=== PATIENT | male | born 1985 | race Caucasian/White ===

== ENCOUNTER 2017-03-12 13:38 | Emergency (ER) | payer SELFPAY ==
[~2017-03-12] VITALS: Ht 175.3 cm; Wt 69.2 kg
[2017-03-12 13:41] VITALS: BP 126/80
[2017-03-12] MEDS ORDERED: HYDROcodone/APAP 5/325 TABLET ONE (14:41)
[2017-03-12] MEDS ORDERED: HYDROcodone/APAP 5/325 TABLET PO ONE (15:00)
== END 2017-03-12 15:12 | disposition home or self-care (01) ==
LOC: ED 15:05
DX: S29.011A Strain of muscle and tendon of front wall of thorax, initial encounter (principal); Z90.49 Acquired absence of other specified parts of digestive tract; V00.131A Fall from skateboard, initial encounter; Y93.89 Activity, other specified; Y99.8 Other external cause status; Y92.89 Other specified places as the place of occurrence of the external cause
CPT/HCPCS: 99284

== ENCOUNTER 2017-06-15 21:09 | Emergency (ER) | payer SELFPAY ==
[~2017-06-15] VITALS: Ht 175.3 cm; Wt 68.8 kg
[2017-06-15] MEDS ORDERED: PROMETHAZINE 25 MG/ML, 1ML IM ONE (22:00)
[2017-06-15] MEDS ORDERED: LORazepam 2 MG/ML, 1ML IVPush ONE (22:00)
[2017-06-15] MEDS ORDERED: SODIUM CHLORIDE FLUSH 10ML SYR IVF ONE (22:00)
[2017-06-15] MEDS ORDERED: SODIUM CHLORIDE 0.9% 1,000ML IVBOLUS ONE (22:00)
[2017-06-15] MEDS ORDERED: ONDANSETRON 2MG/ML, 2ML IVPush ONE (22:00)
[2017-06-15] MEDS ORDERED: FAMOTIDINE 20 MG/2 ML IVP ONE (22:00)
[2017-06-15] MEDS ORDERED: MORPHINE SULFATE 4 MG/ML, 1ML IVPush PRN (22:00)
[2017-06-15 22:27] LABS: ALANINE AMINOTRANSFERASE 81 U/L (12-78); ALBUMIN 4.3 g/dL (3.4-5.0); ANION GAP 10 mmol/L (5-15); CHLORIDE 107 mmol/L (98-107); CREATININE 1.06 mg/dL (0.7-1.3)
[2017-06-15 22:29] LABS: ALKALINE PHOSPHATASE 136 U/L (45-117); BILIRUBIN,TOTAL 0.9 mg/dL (0.2-1.0); TOTAL PROTEIN 8.7 g/dL (6.4-8.2)
[2017-06-15] MEDS ORDERED: LORazepam 2 MG/ML, 1ML ONE (22:30)
[2017-06-15] MEDS ORDERED: PROMETHAZINE 25 MG/ML, 1ML ONE (22:30)
[2017-06-15] MEDS ORDERED: MORPHINE SULFATE 4 MG/ML, 1ML ONE (22:30)
[2017-06-15 22:47] LABS: BASOPHILS # (AUTO) 0.05 x10^3/uL (0-0.1); BASOPHILS % (AUTO) 0 % (0-1); EOSINOPHILS # (AUTO) 0.04 x10^3/uL (0-0.4); EOSINOPHILS % (AUTO) 0 % (1-7); LYMPHOCYTES # (AUTO) 2.61 x10^3/uL (1-3.4); LYMPHOCYTES % (AUTO) 20 % (22-44); MD MORPH REVIEW ONLY; MEAN CORPUSCULAR HEMOGLOBIN 31.9 pg (27.5-34.5); MEAN CORPUSCULAR HGB CONC 34.6 g/dL (33.2-36.2); MEAN CORPUSCULAR VOLUME 92.4 fL (81-97); MEAN PLATELET VOLUME 11.7 fL (7.4-10.4); MONOCYTES # (AUTO) 1.24 x10^3/uL (0.2-0.8); MONOCYTES % (AUTO) 10 % (2-9); NEUTROPHILS # (AUTO) 9.19 x10^3/uL (1.8-6.8); NEUTROPHILS % (AUTO) 70 % (42-75); PLATELET COUNT 229 x10^3/uL (130-400); RED BLOOD COUNT 5.58 x10^6/uL (4.38-5.82); RED CELL DISTRIBUTION WIDTH 13.7 % (9.4-14.8)
[2017-06-15] MEDS ORDERED: FAMOTIDINE 20 MG/2 ML ONE (22:47)
[2017-06-15] MEDS ORDERED: ONDANSETRON 2MG/ML, 2ML ONE (22:47)
[2017-06-15 22:58] LABS: <PLATELET ESTIMATE> ADEQUATE; <RBC MORPHOLOGY> NORMAL
[2017-06-15 22:59] LABS: LARGE PLATELETS 1+
[2017-06-15 23:09] VITALS: BP 132/85
[2017-06-15 23:51] LABS: MICROSCOPIC NOT IND
[2017-06-15] MEDS ORDERED: OMNIPAQUE 350 MG/ML, 100ML BOTTLE ONE (23:51)
[2017-06-15 23:55] LABS: CULTURE INDICATED? NO
== END 2017-06-16 00:59 | disposition home or self-care (01) ==
LOC: ED 06-16 00:20
DX: E86.0 Dehydration (principal); R10.84 Generalized abdominal pain; G43.A1 Cyclical vomiting, in migraine, intractable; Z88.0 Allergy status to penicillin; Z90.49 Acquired absence of other specified parts of digestive tract; Z79.899 Other long term (current) drug therapy; F17.200 Nicotine dependence, unspecified, uncomplicated
CPT/HCPCS: 36415; 74177; 80053; 80307; 81003; 83690; 85025; 93005; 96361; 96372; 96374; 96375; 99285; J2060; J2405; J2550; J7030; Q9967; S0028

== ENCOUNTER 2017-07-31 11:26 | Emergency (ER) | payer MEDICAID, OTHER ==
[~2017-07-31] VITALS: Ht 167.6 cm; Wt 72.0 kg
[2017-07-31 11:40] VITALS: BP 128/89
[2017-07-31] MEDS ORDERED: ACETAMINOPHEN 500 MG TABLET PO ONE (13:30)
[2017-07-31] MEDS ORDERED: IBUPROFEN 200 MG TABLET PO ONE (13:30)
[2017-07-31] MEDS ORDERED: ONDANSETRON ODT 4 MG PO ONE (13:30)
[2017-07-31] MEDS ORDERED: IBUPROFEN 200 MG TABLET ONE (13:45)
[2017-07-31] MEDS ORDERED: ACETAMINOPHEN 500 MG TABLET ONE (13:45)
[2017-07-31] MEDS ORDERED: ONDANSETRON ODT 4 MG ONE (13:45)
[2017-07-31] MEDS ORDERED: KETOROLAC 30 MG/1 ML ONE (13:50)
[2017-07-31] MEDS ORDERED: CEFTRIAXONE 1,000 MG ONE (13:59)
[2017-07-31] MEDS ORDERED: HYDROcodone/APAP 7.5-325MG/15ML UDC ONE (13:59)
[2017-07-31] MEDS ORDERED: KETOROLAC 30 MG/1 ML IM ONE (14:00)
[2017-07-31] MEDS ORDERED: HYDROcodone/APAP 7.5-325MG/15ML UDC PO PRN (14:00)
[2017-07-31] MEDS ORDERED: CEFTRIAXONE 1,000 MG IM ONE (14:00)
== END 2017-07-31 14:31 | disposition home or self-care (01) ==
LOC: ED 14:20
DX: J02.0 Streptococcal pharyngitis (principal)
CPT/HCPCS: 87880; 96372; 99283; J0696

== ENCOUNTER 2017-10-18 13:01 | Inpatient (IN) | payer MEDICAID, OTHER ==
[~2017-10-18] VITALS: Ht 167.6 cm; Wt 63.7 kg
[2017-10-18] MEDS ORDERED: MORPHINE SULFATE 4 MG/ML, 1ML ONE ×3 (14:22→16:25)
[2017-10-18] MEDS ORDERED: ONDANSETRON 2MG/ML, 2ML ONE ×2 (14:22→16:25)
[2017-10-18] MEDS ORDERED: FAMOTIDINE 20 MG/2 ML ONE (14:23)
[2017-10-18] MEDS: MORPHINE SULFATE 4 MG/ML, 1ML IVPush PRN ×4 (14:25→21:08)
[2017-10-18] MEDS ORDERED: ONDANSETRON 2MG/ML, 2ML IVPush ONE ×2 (14:30→16:30)
[2017-10-18] MEDS ORDERED: FAMOTIDINE 20 MG/2 ML IVP ONE (14:30)
[2017-10-18] MEDS ORDERED: SODIUM CHLORIDE 0.9% 1,000ML IVBOLUS ONE (14:30)
[2017-10-18 14:33] LABS: BASOPHILS # (AUTO) 0.02 x10^3/uL (0-0.1); BASOPHILS % (AUTO) 0 % (0-1); EOSINOPHILS # (AUTO) 0.08 x10^3/uL (0-0.4); EOSINOPHILS % (AUTO) 1 % (1-7); LYMPHOCYTES # (AUTO) 2.18 x10^3/uL (1-3.4); LYMPHOCYTES % (AUTO) 28 % (22-44); MD NO; MEAN CORPUSCULAR HEMOGLOBIN 31.5 pg (27.5-34.5); MEAN CORPUSCULAR HGB CONC 35.5 g/dL (33.2-36.2); MEAN CORPUSCULAR VOLUME 88.6 fL (81-97); MEAN PLATELET VOLUME 8.4 fL (7.4-10.4); MONOCYTES # (AUTO) 1.06 x10^3/uL (0.2-0.8); MONOCYTES % (AUTO) 13 % (2-9); NEUTROPHILS % (AUTO) 58 % (42-75); PLATELET COUNT 267 x10^3/uL (130-400); RED BLOOD COUNT 4.98 x10^6/uL (4.38-5.82); RED CELL DISTRIBUTION WIDTH 12.9 % (9.4-14.8)
[2017-10-18 14:38] LABS: ANION GAP 9 mmol/L (5-15); CALCIUM 9.2 mg/dL (8.5-10.1); CHLORIDE 105 mmol/L (98-107)
[2017-10-18 14:42] LABS: ALANINE AMINOTRANSFERASE 43 U/L (12-78); ALKALINE PHOSPHATASE 101 U/L (45-117); BILIRUBIN,TOTAL 0.6 mg/dL (0.2-1.0); CREATININE 1.36 mg/dL (0.7-1.3); TOTAL PROTEIN 7.7 g/dL (6.4-8.2)
[2017-10-18] MEDS ORDERED: OMNIPAQUE 350 MG/ML, 100ML BOTTLE ONE (15:13)
[2017-10-18] MEDS ORDERED: MORPHINE SULFATE 4 MG/ML, 1ML IVPush ONE (16:30)
[2017-10-18] MEDS ORDERED: BISACODYL 10 MG SUPP PR PRN (17:30)
[2017-10-18] MEDS ORDERED: ENALAPRILAT 1.25 MG/ML, 2ML IVPush PRN (17:30)
[2017-10-18 18:00] VITALS: BP 117/80
[2017-10-18] MEDS: LACTATED RINGERS 1,000 ML IV SCH (18:04)
[2017-10-18] MEDS: ONDANSETRON 2MG/ML, 2ML IVPush PRN (18:04)
[2017-10-18] MEDS ORDERED: HYDR50TA13 PO (18:26)
[2017-10-18] MEDS ORDERED: FLUO20CA19 PO (18:26)
[2017-10-18] MEDS ORDERED: LORA2TAB PO (18:26)
[2017-10-18] MEDS ORDERED: BUSP10TA PO (18:26)
[2017-10-18] MEDS ORDERED: LAMO200T49 PO (18:26)
[2017-10-18 18:36] VITALS: BP 115/68
[2017-10-18] MEDS: FAMOTIDINE 20 MG/2 ML IVPush SCH (21:07)
[2017-10-18] MEDS: BUSPIRONE 10 MG TABLET PO SCH (21:08)
[2017-10-18] MEDS: MIRTAZAPINE 15 MG TAB.RAPDIS PO SCH (21:08)
[2017-10-18] MEDS: ONDANSETRON ODT 4 MG PO PRN (22:31)
[2017-10-18] MEDS: DOCUSATE 100 MG CAPSULE PO PRN (22:31)
[2017-10-18] MEDS: HEPARIN 5,000 UNITS/ML, 1ML SQ SCH (22:32)
[2017-10-18] MEDS: ACETAMINOPHEN 325 MG TABLET PO PRN (23:18)
[2017-10-19 00:56] VITALS: BP 111/69
[2017-10-19] MEDS: LACTATED RINGERS 1,000 ML IV SCH ×3 (02:09→16:52)
[2017-10-19] MEDS: MORPHINE SULFATE 4 MG/ML, 1ML IVPush PRN ×4 (05:11→20:48)
[2017-10-19] MEDS: ONDANSETRON ODT 4 MG PO PRN ×3 (05:11→16:45)
[2017-10-19 05:43] LABS: MEAN CORPUSCULAR HEMOGLOBIN 30.5 pg (27.5-34.5); MEAN CORPUSCULAR HGB CONC 34.4 g/dL (33.2-36.2); MEAN CORPUSCULAR VOLUME 88.6 fL (81-97); MEAN PLATELET VOLUME 8.6 fL (7.4-10.4); PLATELET COUNT 202 x10^3/uL (130-400); RED BLOOD COUNT 4.43 x10^6/uL (4.38-5.82); RED CELL DISTRIBUTION WIDTH 12.8 % (9.4-14.8)
[2017-10-19 05:45] LABS: ANION GAP 6 mmol/L (5-15); CALCIUM 7.7 mg/dL (8.5-10.1); CHLORIDE 105 mmol/L (98-107); CREATININE 1.04 mg/dL (0.7-1.3)
[2017-10-19 05:46] LABS: ALANINE AMINOTRANSFERASE 81 U/L (12-78)
[2017-10-19 05:48] LABS: ALKALINE PHOSPHATASE 103 U/L (45-117); BILIRUBIN,TOTAL 0.5 mg/dL (0.2-1.0); TOTAL PROTEIN 6.1 g/dL (6.4-8.2)
[2017-10-19] MEDS: HEPARIN 5,000 UNITS/ML, 1ML SQ SCH ×3 (06:16→22:30)
[2017-10-19 06:21] LABS: MD YES
[2017-10-19 06:24] LABS: BAND#(MANUAL) 0.04 x10^3/uL; BANDS%(MANUAL) 1 % (0-7); EOS#(MANUAL) 0.04 x10^3/uL (0.0-0.4); EOS% (MANUAL) 1 % (1-7); REACTIVE LYMPHS # (MANUAL) 0.04 x10^3/uL (0-0); REACTIVE LYMPHS % (MANUAL) 1 % (0-0)
[2017-10-19 06:25] LABS: LYMPH#(MANUAL) 2.23 x10^3/uL (1-3.4); LYMPHS% (MANUAL) 62 % (22-44); MONOS% (MANUAL) 11 % (2-9); SEG#(MANUAL) 0.86 x10^3/uL (1.8-6.8); SEGS% (MANUAL) 24 % (42-75)
[2017-10-19 06:27] LABS: MICROSCOPIC NOT IND
[2017-10-19 06:29] LABS: <RBC MORPHOLOGY> NORMAL
[2017-10-19 06:30] LABS: <PLATELET ESTIMATE> ADEQUATE; <PLT MORPHOLOGY> NORMAL PLT MORPH
[2017-10-19 06:31] LABS: CULTURE INDICATED? NO
[2017-10-19 08:06] VITALS: BP 98/66
[2017-10-19] MEDS: ONDANSETRON 2MG/ML, 2ML IVPush PRN ×2 (08:48→20:25)
[2017-10-19] MEDS: BUSPIRONE 10 MG TABLET PO SCH ×3 (08:51→21:29)
[2017-10-19] MEDS: DOCUSATE 100 MG CAPSULE PO PRN (08:51)
[2017-10-19] MEDS: LAMOTRIGINE 200 MG TABLET PO SCH (08:52)
[2017-10-19] MEDS: FLUOXETINE HCL 20 MG CAPSULE PO SCH (08:52)
[2017-10-19] MEDS: ACETAMINOPHEN 325 MG TABLET PO PRN (10:44)
[2017-10-19] MEDS: POLYETHYLENE GLYCOL 17 GM PACKET PO PRN ×2 (10:44→21:52)
[2017-10-19 13:06] VITALS: BP 106/72
[2017-10-19] MEDS: hydrOXyzine 50MG TABLET PO PRN (13:52)
[2017-10-19 18:38] VITALS: BP 122/82
[2017-10-19] MEDS: MIRTAZAPINE 15 MG TAB.RAPDIS PO SCH (21:29)
[2017-10-19] MEDS: FAMOTIDINE 20 MG/2 ML IVPush SCH (21:29)
[2017-10-20] MEDS: LACTATED RINGERS 1,000 ML IV SCH ×3 (00:20→17:36)
[2017-10-20 01:16] VITALS: BP 116/80
[2017-10-20] MEDS: MORPHINE SULFATE 4 MG/ML, 1ML IVPush PRN ×5 (03:50→21:12)
[2017-10-20 05:51] LABS: BASOPHILS # (AUTO) 0.01 x10^3/uL (0-0.1); BASOPHILS % (AUTO) 0 % (0-1); EOSINOPHILS # (AUTO) 0.02 x10^3/uL (0-0.4); EOSINOPHILS % (AUTO) 0 % (1-7); LYMPHOCYTES # (AUTO) 1.13 x10^3/uL (1-3.4); LYMPHOCYTES % (AUTO) 24 % (22-44); MD NO; MEAN CORPUSCULAR HEMOGLOBIN 30.5 pg (27.5-34.5); MEAN CORPUSCULAR HGB CONC 34.8 g/dL (33.2-36.2); MEAN CORPUSCULAR VOLUME 87.7 fL (81-97); MEAN PLATELET VOLUME 8.4 fL (7.4-10.4); MONOCYTES # (AUTO) 0.68 x10^3/uL (0.2-0.8); MONOCYTES % (AUTO) 14 % (2-9); NEUTROPHILS # (AUTO) 2.85 x10^3/uL (1.8-6.8); NEUTROPHILS % (AUTO) 61 % (42-75); PLATELET COUNT 220 x10^3/uL (130-400); RED BLOOD COUNT 4.54 x10^6/uL (4.38-5.82); RED CELL DISTRIBUTION WIDTH 12.4 % (9.4-14.8)
[2017-10-20 05:52] LABS: ALANINE AMINOTRANSFERASE 62 U/L (12-78); ALBUMIN 3.2 g/dL (3.4-5.0); ANION GAP 10 mmol/L (5-15); CALCIUM 7.9 mg/dL (8.5-10.1); CHLORIDE 103 mmol/L (98-107)
[2017-10-20 05:54] LABS: ALKALINE PHOSPHATASE 116 U/L (45-117); BILIRUBIN,TOTAL 0.8 mg/dL (0.2-1.0); CREATININE 0.85 mg/dL (0.7-1.3); TOTAL PROTEIN 6.7 g/dL (6.4-8.2)
[2017-10-20] MEDS: HEPARIN 5,000 UNITS/ML, 1ML SQ SCH ×3 (06:27→21:11)
[2017-10-20 07:21] VITALS: BP 111/73
[2017-10-20] MEDS: ONDANSETRON 2MG/ML, 2ML IVPush PRN ×3 (09:26→21:12)
[2017-10-20] MEDS: FLUOXETINE HCL 20 MG CAPSULE PO SCH (09:27)
[2017-10-20] MEDS: LAMOTRIGINE 200 MG TABLET PO SCH (09:27)
[2017-10-20] MEDS: BUSPIRONE 10 MG TABLET PO SCH ×3 (09:27→21:12)
[2017-10-20 12:48] VITALS: BP 112/78
[2017-10-20] MEDS: hydrOXyzine 50MG TABLET PO PRN (14:32)
[2017-10-20] MEDS ORDERED: MAGNESIUM CITRATE 300ML ORAL SOL PO PRN (17:00)
[2017-10-20] MEDS ORDERED: MAGNESIUM CITRATE 300ML ORAL SOL PO ONE (18:00)
[2017-10-20 18:05] LABS: MICROSCOPIC NOT IND
[2017-10-20 20:22] VITALS: BP 119/76
[2017-10-20] MEDS: FAMOTIDINE 20 MG/2 ML IVPush SCH (21:12)
[2017-10-20] MEDS: MIRTAZAPINE 15 MG TAB.RAPDIS PO SCH (21:12)
[2017-10-21 03:00] VITALS: BP 105/67
[2017-10-21] MEDS: MORPHINE SULFATE 4 MG/ML, 1ML IVPush PRN ×6 (03:20→22:07)
[2017-10-21] MEDS: ONDANSETRON 2MG/ML, 2ML IVPush PRN ×3 (03:20→15:49)
[2017-10-21 05:37] LABS: ALANINE AMINOTRANSFERASE 172 U/L (12-78); ALBUMIN 3.2 g/dL (3.4-5.0); ANION GAP 8 mmol/L (5-15); CALCIUM 8.1 mg/dL (8.5-10.1); CHLORIDE 102 mmol/L (98-107)
[2017-10-21 05:39] LABS: ALKALINE PHOSPHATASE 217 U/L (45-117); BILIRUBIN,TOTAL 0.7 mg/dL (0.2-1.0); TOTAL PROTEIN 6.8 g/dL (6.4-8.2)
[2017-10-21 05:57] LABS: BASOPHILS # (AUTO) 0.03 x10^3/uL (0-0.1); BASOPHILS % (AUTO) 1 % (0-1); EOSINOPHILS # (AUTO) 0.03 x10^3/uL (0-0.4); EOSINOPHILS % (AUTO) 1 % (1-7); LYMPHOCYTES # (AUTO) 1.29 x10^3/uL (1-3.4); LYMPHOCYTES % (AUTO) 35 % (22-44); MD NO; MEAN CORPUSCULAR HEMOGLOBIN 30.5 pg (27.5-34.5); MEAN CORPUSCULAR HGB CONC 34.8 g/dL (33.2-36.2); MEAN CORPUSCULAR VOLUME 87.7 fL (81-97); MEAN PLATELET VOLUME 8.4 fL (7.4-10.4); MONOCYTES # (AUTO) 0.72 x10^3/uL (0.2-0.8); MONOCYTES % (AUTO) 20 % (2-9); NEUTROPHILS # (AUTO) 1.57 x10^3/uL (1.8-6.8); NEUTROPHILS % (AUTO) 43 % (42-75); PLATELET COUNT 209 x10^3/uL (130-400); RED BLOOD COUNT 4.46 x10^6/uL (4.38-5.82); RED CELL DISTRIBUTION WIDTH 12.9 % (9.4-14.8)
[2017-10-21] MEDS: HEPARIN 5,000 UNITS/ML, 1ML SQ SCH (06:27)
[2017-10-21] MEDS: LACTATED RINGERS 1,000 ML IV SCH (06:28)
[2017-10-21 07:19] VITALS: BP 120/80
[2017-10-21 07:57] LABS: INTERNATIONAL NORMALIZED RATIO 0.96 (0.93-1.1)
[2017-10-21] MEDS: BUSPIRONE 10 MG TABLET PO SCH ×3 (09:34→20:37)
[2017-10-21] MEDS: LAMOTRIGINE 200 MG TABLET PO SCH (09:34)
[2017-10-21] MEDS: FLUOXETINE HCL 20 MG CAPSULE PO SCH (09:35)
[2017-10-21] MEDS ORDERED: GASTROGRAFIN 120 ML SOLN PO ONE (11:12)
[2017-10-21 14:51] VITALS: BP 123/85
[2017-10-21] MEDS: hydrOXyzine 50MG TABLET PO PRN (15:16)
[2017-10-21] MEDS ORDERED: PROMETHAZINE 25 MG/ML, 1ML IM PRN (16:30)
[2017-10-21 20:31] VITALS: BP 129/79
[2017-10-21] MEDS: MIRTAZAPINE 15 MG TAB.RAPDIS PO SCH (20:37)
[2017-10-21] MEDS: FAMOTIDINE 20 MG/2 ML IVPush SCH (20:37)
[2017-10-22 02:37] VITALS: BP 111/74
[2017-10-22] MEDS: LACTATED RINGERS 1,000 ML IV SCH ×2 (02:49→17:54)
[2017-10-22] MEDS: MORPHINE SULFATE 4 MG/ML, 1ML IVPush PRN ×6 (05:19→22:36)
[2017-10-22 05:52] LABS: CHLORIDE 104 mmol/L (98-107)
[2017-10-22 05:53] LABS: MEAN CORPUSCULAR HEMOGLOBIN 31.1 pg (27.5-34.5); MEAN CORPUSCULAR HGB CONC 35.4 g/dL (33.2-36.2); MEAN CORPUSCULAR VOLUME 87.9 fL (81-97); MEAN PLATELET VOLUME 8.3 fL (7.4-10.4); PLATELET COUNT 209 x10^3/uL (130-400); RED BLOOD COUNT 4.57 x10^6/uL (4.38-5.82); RED CELL DISTRIBUTION WIDTH 13.1 % (9.4-14.8)
[2017-10-22 06:13] LABS: HCT (SEDRATE) 40.1 % (39.2-51.8)
[2017-10-22 06:14] LABS: MD YES
[2017-10-22 06:19] LABS: <PLATELET ESTIMATE> ADEQUATE; <PLT MORPHOLOGY> NORMAL PLT MORPH; <RBC MORPHOLOGY> NORMAL; LYMPH#(MANUAL) 1.92 x10^3/uL (1-3.4); LYMPHS% (MANUAL) 60 % (22-44); MONOS#(MANUAL) 0.26 x10^3/uL (0.3-2.7); MONOS% (MANUAL) 8 % (2-9); SEG#(MANUAL) 1.02 x10^3/uL (1.8-6.8); SEGS% (MANUAL) 32 % (42-75)
[2017-10-22 06:23] LABS: ALANINE AMINOTRANSFERASE 120 U/L (12-78); ALBUMIN 3.2 g/dL (3.4-5.0); ALKALINE PHOSPHATASE 172 U/L (45-117); ANION GAP 7 mmol/L (5-15); BILIRUBIN,TOTAL 0.9 mg/dL (0.2-1.0); CALCIUM 8.3 mg/dL (8.5-10.1); TOTAL PROTEIN 6.9 g/dL (6.4-8.2)
[2017-10-22 08:04] VITALS: BP 123/90
[2017-10-22] MEDS: BUSPIRONE 10 MG TABLET PO SCH ×3 (09:07→21:16)
[2017-10-22] MEDS: ONDANSETRON 2MG/ML, 2ML IVPush PRN ×3 (09:07→21:16)
[2017-10-22] MEDS: LAMOTRIGINE 200 MG TABLET PO SCH (09:07)
[2017-10-22] MEDS: FLUOXETINE HCL 20 MG CAPSULE PO SCH (09:08)
[2017-10-22] MEDS: hydrOXyzine 50MG TABLET PO PRN (11:09)
[2017-10-22 12:31] VITALS: BP 112/79
[2017-10-22] MEDS: OXYcodone IR 5MG TABLET PO PRN ×3 (13:36→21:53)
[2017-10-22 14:55] LABS: CREATINE KINASE, TOTAL 52 U/L (39-308)
[2017-10-22 15:13] LABS: ACETAMINOPHEN < 2 mcg/mL (10-30)
[2017-10-22 19:04] VITALS: BP 125/84
[2017-10-22] MEDS: FAMOTIDINE 20 MG/2 ML IVPush SCH (21:15)
[2017-10-22] MEDS: MIRTAZAPINE 15 MG TAB.RAPDIS PO SCH (21:16)
[2017-10-23 00:05] VITALS: BP 119/74
[2017-10-23] MEDS: MORPHINE SULFATE 4 MG/ML, 1ML IVPush PRN ×6 (02:03→21:02)
[2017-10-23 05:21] LABS: MEAN CORPUSCULAR HEMOGLOBIN 31.1 pg (27.5-34.5); MEAN CORPUSCULAR HGB CONC 34.9 g/dL (33.2-36.2); MEAN CORPUSCULAR VOLUME 89.2 fL (81-97); MEAN PLATELET VOLUME 8.2 fL (7.4-10.4); PLATELET COUNT 247 x10^3/uL (130-400); RED BLOOD COUNT 4.35 x10^6/uL (4.38-5.82); RED CELL DISTRIBUTION WIDTH 13.3 % (9.4-14.8)
[2017-10-23 05:26] LABS: ALANINE AMINOTRANSFERASE 84 U/L (12-78); ANION GAP 9 mmol/L (5-15); CALCIUM 7.9 mg/dL (8.5-10.1); CHLORIDE 106 mmol/L (98-107)
[2017-10-23 05:29] LABS: ALKALINE PHOSPHATASE 154 U/L (45-117); BILIRUBIN,TOTAL 0.6 mg/dL (0.2-1.0); TOTAL PROTEIN 6.7 g/dL (6.4-8.2)
[2017-10-23] MEDS: LACTATED RINGERS 1,000 ML IV SCH (05:45)
[2017-10-23 05:50] LABS: MD YES
[2017-10-23 05:53] LABS: BAND#(MANUAL) 0.03 x10^3/uL; BANDS%(MANUAL) 1 % (0-7); BASOS#(MANUAL) 0.03 x10^3/uL (0-0.1); BASOS% (MANUAL) 1 % (0-1); EOS#(MANUAL) 0.13 x10^3/uL (0.0-0.4); EOS% (MANUAL) 4 % (1-7); LYMPH#(MANUAL) 2.05 x10^3/uL (1-3.4); LYMPHS% (MANUAL) 62 % (22-44); MONOS% (MANUAL) 6 % (2-9); SEG#(MANUAL) 0.86 x10^3/uL (1.8-6.8); SEGS% (MANUAL) 26 % (42-75)
[2017-10-23 05:54] LABS: <PLATELET ESTIMATE> ADEQUATE; <PLT MORPHOLOGY> NORMAL PLT MORPH
[2017-10-23 05:55] LABS: POLYCHROMASIA 1+
[2017-10-23] MEDS ORDERED: POTASSIUM CHLORIDE 40 MEQ in SODIUM CHLORIDE 0.9% 500 ML IV ONE (07:00)
[2017-10-23 07:47] VITALS: BP 110/80
[2017-10-23] MEDS ORDERED: FENTANYL PF 100 MCG/2ML ONE (07:54)
[2017-10-23] MEDS ORDERED: MIDAZOLAM 1 MG/ML, 5ML ONE (07:55)
[2017-10-23] MEDS ORDERED: FLUMAZENIL 0.1 MG/1 ML, 5ML ONE (07:55)
[2017-10-23] MEDS ORDERED: NALOXONE 1 MG/ML, 2ML ONE (07:55)
[2017-10-23] MEDS: ONDANSETRON 2MG/ML, 2ML IVPush PRN ×2 (07:59→17:06)
[2017-10-23] MEDS: LAMOTRIGINE 200 MG TABLET PO SCH (10:33)
[2017-10-23] MEDS: FLUOXETINE HCL 20 MG CAPSULE PO SCH (10:33)
[2017-10-23] MEDS: BUSPIRONE 10 MG TABLET PO SCH ×3 (10:33→19:47)
[2017-10-23] MEDS: OXYcodone IR 5MG TABLET PO PRN ×3 (12:02→19:47)
[2017-10-23 12:34] VITALS: BP 129/88
[2017-10-23] MEDS ORDERED: FAMOTIDINE 20 MG TABLET PO SCH (15:02)
[2017-10-23] MEDS: hydrOXyzine 50MG TABLET PO PRN (15:42)
[2017-10-23 15:46] LABS: ANA SCREEN NEGATIVE (Negative)
[2017-10-23 18:57] VITALS: BP 131/85
[2017-10-23] MEDS: FAMOTIDINE 20 MG TABLET PO SCH (19:47)
[2017-10-23] MEDS: MIRTAZAPINE 15 MG TAB.RAPDIS PO SCH (19:47)
[2017-10-24] MEDS: LACTATED RINGERS 1,000 ML IV SCH ×3 (01:04→17:26)
[2017-10-24 02:54] VITALS: BP 114/77
[2017-10-24] MEDS: OXYcodone IR 5MG TABLET PO PRN ×2 (03:14→09:49)
[2017-10-24] MEDS: ONDANSETRON 2MG/ML, 2ML IVPush PRN ×3 (03:14→15:26)
[2017-10-24] MEDS: MORPHINE SULFATE 4 MG/ML, 1ML IVPush PRN ×5 (04:39→20:02)
[2017-10-24 05:29] LABS: MEAN CORPUSCULAR HEMOGLOBIN 31.1 pg (27.5-34.5); MEAN CORPUSCULAR HGB CONC 35.3 g/dL (33.2-36.2); MEAN CORPUSCULAR VOLUME 88.1 fL (81-97); MEAN PLATELET VOLUME 8.3 fL (7.4-10.4); PLATELET COUNT 249 x10^3/uL (130-400); RED BLOOD COUNT 4.37 x10^6/uL (4.38-5.82); RED CELL DISTRIBUTION WIDTH 12.9 % (9.4-14.8)
[2017-10-24 05:41] LABS: ALBUMIN 3.3 g/dL (3.4-5.0); ANION GAP 9 mmol/L (5-15); CALCIUM 8.5 mg/dL (8.5-10.1); CHLORIDE 104 mmol/L (98-107)
[2017-10-24 05:52] LABS: ALANINE AMINOTRANSFERASE 71 U/L (12-78); ALKALINE PHOSPHATASE 133 U/L (45-117); BILIRUBIN,TOTAL 0.4 mg/dL (0.2-1.0); CREATININE 1.01 mg/dL (0.7-1.3)
[2017-10-24 06:11] LABS: MD YES
[2017-10-24 06:15] LABS: EOS#(MANUAL) 0.02 x10^3/uL (0.0-0.4); EOS% (MANUAL) 1 % (1-7); LYMPH#(MANUAL) 1.47 x10^3/uL (1-3.4); LYMPHS% (MANUAL) 64 % (22-44); MONOS#(MANUAL) 0.37 x10^3/uL (0.3-2.7); MONOS% (MANUAL) 16 % (2-9); SEG#(MANUAL) 0.44 x10^3/uL (1.8-6.8); SEGS% (MANUAL) 19 % (42-75)
[2017-10-24 06:16] LABS: <PLATELET ESTIMATE> ADEQUATE; <PLT MORPHOLOGY> NORMAL PLT MORPH; <RBC MORPHOLOGY> NORMAL
[2017-10-24 06:20] LABS: HCT (SEDRATE) 38.5 % (39.2-51.8)
[2017-10-24 06:35] VITALS: BP 116/77
[2017-10-24] MEDS: FLUOXETINE HCL 20 MG CAPSULE PO SCH (08:41)
[2017-10-24] MEDS: BUSPIRONE 10 MG TABLET PO SCH ×3 (08:42→19:53)
[2017-10-24] MEDS: LAMOTRIGINE 200 MG TABLET PO SCH (08:42)
[2017-10-24] MEDS: hydrOXyzine 50MG TABLET PO PRN (09:49)
[2017-10-24 10:16] LABS: TROPONIN I < 0.015 ng/mL (0.000-0.045)
[2017-10-24 12:42] VITALS: BP 119/81
[2017-10-24 14:16] LABS: TROPONIN I < 0.015 ng/mL (0.000-0.045)
[2017-10-24 19:42] VITALS: BP 118/75
[2017-10-24] MEDS: MIRTAZAPINE 15 MG TAB.RAPDIS PO SCH (19:53)
[2017-10-24] MEDS: FAMOTIDINE 20 MG TABLET PO SCH (19:53)
[2017-10-25] MEDS: LACTATED RINGERS 1,000 ML IV SCH ×3 (00:12→19:57)
[2017-10-25] MEDS: MORPHINE SULFATE 4 MG/ML, 1ML IVPush PRN ×6 (00:19→22:37)
[2017-10-25 02:08] VITALS: BP 106/68
[2017-10-25 05:09] LABS: CHLORIDE 104 mmol/L (98-107)
[2017-10-25 05:12] LABS: MEAN CORPUSCULAR HGB CONC 35.1 g/dL (33.2-36.2); MEAN CORPUSCULAR VOLUME 88.4 fL (81-97); PLATELET COUNT 270 x10^3/uL (130-400); RED BLOOD COUNT 4.46 x10^6/uL (4.38-5.82); RED CELL DISTRIBUTION WIDTH 13.1 % (9.4-14.8)
[2017-10-25 05:15] LABS: ALANINE AMINOTRANSFERASE 55 U/L (12-78); ALBUMIN 3.3 g/dL (3.4-5.0); ALKALINE PHOSPHATASE 123 U/L (45-117); ANION GAP 7 mmol/L (5-15); BILIRUBIN,TOTAL 0.5 mg/dL (0.2-1.0); CALCIUM 8.7 mg/dL (8.5-10.1)
[2017-10-25 05:50] LABS: MD YES
[2017-10-25 05:53] LABS: <PLATELET ESTIMATE> ADEQUATE; <PLT MORPHOLOGY> NORMAL PLT MORPH; <RBC MORPHOLOGY> NORMAL; BASOS#(MANUAL) 0.11 x10^3/uL (0-0.1); BASOS% (MANUAL) 4 % (0-1); EOS#(MANUAL) 0.11 x10^3/uL (0.0-0.4); EOS% (MANUAL) 4 % (1-7); LYMPH#(MANUAL) 1.85 x10^3/uL (1-3.4); LYMPHS% (MANUAL) 66 % (22-44); MONOS% (MANUAL) 18 % (2-9); SEG#(MANUAL) 0.22 x10^3/uL (1.8-6.8); SEGS% (MANUAL) 8 % (42-75)
[2017-10-25] MEDS: ONDANSETRON 2MG/ML, 2ML IVPush PRN ×2 (08:25→15:33)
[2017-10-25] MEDS: LAMOTRIGINE 200 MG TABLET PO SCH (08:25)
[2017-10-25] MEDS: FLUOXETINE HCL 20 MG CAPSULE PO SCH (08:25)
[2017-10-25] MEDS: BUSPIRONE 10 MG TABLET PO SCH ×3 (08:25→19:56)
[2017-10-25 09:59] VITALS: BP 114/80
[2017-10-25] MEDS: hydrOXyzine 50MG TABLET PO PRN (11:47)
[2017-10-25 14:16] VITALS: BP 114/74
[2017-10-25 19:07] VITALS: BP 122/83
[2017-10-25] MEDS: MIRTAZAPINE 15 MG TAB.RAPDIS PO SCH (19:56)
[2017-10-25] MEDS: OXYcodone IR 5MG TABLET PO PRN (19:56)
[2017-10-25] MEDS: FAMOTIDINE 20 MG TABLET PO SCH (19:56)
[2017-10-25] MEDS: ONDANSETRON ODT 4 MG PO PRN (22:37)
[2017-10-26 02:16] VITALS: BP 108/71
[2017-10-26] MEDS: LACTATED RINGERS 1,000 ML IV SCH ×2 (06:04→14:50)
[2017-10-26 07:41] VITALS: BP 102/63
[2017-10-26] MEDS: LAMOTRIGINE 200 MG TABLET PO SCH (07:51)
[2017-10-26] MEDS: BUSPIRONE 10 MG TABLET PO SCH (07:51)
[2017-10-26] MEDS: FLUOXETINE HCL 20 MG CAPSULE PO SCH (07:51)
[2017-10-26] MEDS: MORPHINE SULFATE 4 MG/ML, 1ML IVPush PRN ×4 (07:52→21:45)
[2017-10-26] MEDS: ONDANSETRON 2MG/ML, 2ML IVPush PRN ×2 (07:52→14:49)
[2017-10-26] MEDS: OXYcodone IR 5MG TABLET PO PRN ×3 (10:00→19:39)
[2017-10-26 14:30] VITALS: BP 112/75
[2017-10-26 19:30] VITALS: BP 122/90
[2017-10-26] MEDS: FAMOTIDINE 20 MG TABLET PO SCH (19:39)
[2017-10-26] MEDS: LITHIUM CARBONATE 300 MG CAPSULE PO SCH (21:45)
[2017-10-27 01:18] VITALS: BP 108/61
[2017-10-27] MEDS: LACTATED RINGERS 1,000 ML IV SCH ×3 (02:20→21:42)
[2017-10-27] MEDS: ONDANSETRON 2MG/ML, 2ML IVPush PRN ×2 (02:31→10:14)
[2017-10-27] MEDS: OXYcodone IR 5MG TABLET PO PRN ×5 (02:31→21:42)
[2017-10-27 06:16] LABS: BASOPHILS # (AUTO) 0.04 x10^3/uL (0-0.1); BASOPHILS % (AUTO) 1 % (0-1); EOSINOPHILS # (AUTO) 0.09 x10^3/uL (0-0.4); EOSINOPHILS % (AUTO) 3 % (1-7); LYMPHOCYTES # (AUTO) 1.76 x10^3/uL (1-3.4); LYMPHOCYTES % (AUTO) 52 % (22-44); MD NO; MEAN CORPUSCULAR HEMOGLOBIN 30.9 pg (27.5-34.5); MEAN CORPUSCULAR HGB CONC 34.9 g/dL (33.2-36.2); MEAN CORPUSCULAR VOLUME 88.6 fL (81-97); MEAN PLATELET VOLUME 8.1 fL (7.4-10.4); MONOCYTES # (AUTO) 0.65 x10^3/uL (0.2-0.8); MONOCYTES % (AUTO) 19 % (2-9); NEUTROPHILS # (AUTO) 0.83 x10^3/uL (1.8-6.8); NEUTROPHILS % (AUTO) 25 % (42-75); PLATELET COUNT 274 x10^3/uL (130-400); RED BLOOD COUNT 4.51 x10^6/uL (4.38-5.82)
[2017-10-27 08:30] VITALS: BP 108/80
[2017-10-27] MEDS: LAMOTRIGINE 200 MG TABLET PO SCH (08:39)
[2017-10-27] MEDS: FLUOXETINE HCL 20 MG CAPSULE PO SCH (08:39)
[2017-10-27] MEDS: LITHIUM CARBONATE 300 MG CAPSULE PO SCH ×3 (08:40→20:00)
[2017-10-27] MEDS ORDERED: LITHIUM CARBONATE 300 MG CAPSULE PO SCH (09:00)
[2017-10-27] MEDS: MORPHINE SULFATE 4 MG/ML, 1ML IVPush PRN ×3 (09:15→20:00)
[2017-10-27 14:00] VITALS: BP 113/75
[2017-10-27] MEDS: hydrOXyzine 50MG TABLET PO PRN (15:36)
[2017-10-27 19:23] VITALS: BP 121/85
[2017-10-27] MEDS: FAMOTIDINE 20 MG TABLET PO SCH (20:00)
[2017-10-27] MEDS: ONDANSETRON ODT 4 MG PO PRN (20:00)
[2017-10-28 00:03] VITALS: BP 106/68
[2017-10-28 08:10] VITALS: BP 119/67
[2017-10-28] MEDS: LITHIUM CARBONATE 300 MG CAPSULE PO SCH ×3 (08:41→20:16)
[2017-10-28] MEDS: FLUOXETINE HCL 20 MG CAPSULE PO SCH (08:41)
[2017-10-28] MEDS: LAMOTRIGINE 200 MG TABLET PO SCH (08:42)
[2017-10-28] MEDS: ONDANSETRON 2MG/ML, 2ML IVPush PRN ×2 (08:42→16:15)
[2017-10-28] MEDS: MORPHINE SULFATE 4 MG/ML, 1ML IVPush PRN ×3 (08:42→21:30)
[2017-10-28] MEDS: LACTATED RINGERS 1,000 ML IV SCH ×2 (08:42→18:40)
[2017-10-28 09:45] LABS: BASOPHILS # (AUTO) 0.03 x10^3/uL (0-0.1); BASOPHILS % (AUTO) 1 % (0-1); EOSINOPHILS # (AUTO) 0.05 x10^3/uL (0-0.4); EOSINOPHILS % (AUTO) 2 % (1-7); LYMPHOCYTES # (AUTO) 1.21 x10^3/uL (1-3.4); LYMPHOCYTES % (AUTO) 39 % (22-44); MD NO; MEAN CORPUSCULAR HEMOGLOBIN 30.1 pg (27.5-34.5); MEAN CORPUSCULAR HGB CONC 34.1 g/dL (33.2-36.2); MEAN CORPUSCULAR VOLUME 88.3 fL (81-97); MEAN PLATELET VOLUME 8.2 fL (7.4-10.4); MONOCYTES % (AUTO) 16 % (2-9); NEUTROPHILS # (AUTO) 1.29 x10^3/uL (1.8-6.8); NEUTROPHILS % (AUTO) 42 % (42-75); PLATELET COUNT 326 x10^3/uL (130-400); RED BLOOD COUNT 5.17 x10^6/uL (4.38-5.82); RED CELL DISTRIBUTION WIDTH 13.5 % (9.4-14.8)
[2017-10-28 09:54] LABS: ALBUMIN 4.3 g/dL (3.4-5.0); ANION GAP 9 mmol/L (5-15); CALCIUM 9.3 mg/dL (8.5-10.1); CHLORIDE 101 mmol/L (98-107); CREATININE 1.13 mg/dL (0.7-1.3)
[2017-10-28] MEDS: OXYcodone IR 5MG TABLET PO PRN ×3 (10:14→20:16)
[2017-10-28] MEDS: hydrOXyzine 50MG TABLET PO PRN (12:42)
[2017-10-28 14:30] VITALS: BP 119/81
[2017-10-28 18:54] VITALS: BP 120/83
[2017-10-28] MEDS: FAMOTIDINE 20 MG TABLET PO SCH (20:16)
[2017-10-28] MEDS: ONDANSETRON ODT 4 MG PO PRN (23:20)
[2017-10-29 00:06] VITALS: BP 128/83
[2017-10-29] MEDS: OXYcodone IR 5MG TABLET PO PRN ×4 (00:26→21:58)
[2017-10-29] MEDS: LACTATED RINGERS 1,000 ML IV SCH ×2 (04:07→20:50)
[2017-10-29 05:59] LABS: BASOPHILS # (AUTO) 0.04 x10^3/uL (0-0.1); BASOPHILS % (AUTO) 1 % (0-1); EOSINOPHILS % (AUTO) 2 % (1-7); LYMPHOCYTES # (AUTO) 1.33 x10^3/uL (1-3.4); LYMPHOCYTES % (AUTO) 27 % (22-44); MD NO; MEAN CORPUSCULAR HGB CONC 34.7 g/dL (33.2-36.2); MEAN CORPUSCULAR VOLUME 89.3 fL (81-97); MEAN PLATELET VOLUME 8.4 fL (7.4-10.4); MONOCYTES # (AUTO) 0.88 x10^3/uL (0.2-0.8); MONOCYTES % (AUTO) 18 % (2-9); NEUTROPHILS # (AUTO) 2.54 x10^3/uL (1.8-6.8); NEUTROPHILS % (AUTO) 52 % (42-75); PLATELET COUNT 257 x10^3/uL (130-400); RED CELL DISTRIBUTION WIDTH 13.4 % (9.4-14.8)
[2017-10-29 06:02] LABS: ALANINE AMINOTRANSFERASE 30 U/L (12-78); ALBUMIN 3.6 g/dL (3.4-5.0); ANION GAP 7 mmol/L (5-15); CALCIUM 8.8 mg/dL (8.5-10.1); CHLORIDE 104 mmol/L (98-107); CREATININE 1.01 mg/dL (0.7-1.3)
[2017-10-29 06:04] LABS: ALKALINE PHOSPHATASE 107 U/L (45-117); BILIRUBIN,TOTAL 0.6 mg/dL (0.2-1.0); TOTAL PROTEIN 7.1 g/dL (6.4-8.2)
[2017-10-29 06:57] VITALS: BP 113/76
[2017-10-29] MEDS ORDERED: POTASSIUM CHLORIDE 40 MEQ in SODIUM CHLORIDE 0.9% 500 ML IV ONE (07:00)
[2017-10-29] MEDS: LITHIUM CARBONATE 300 MG CAPSULE PO SCH ×3 (08:00→20:51)
[2017-10-29] MEDS: LAMOTRIGINE 200 MG TABLET PO SCH (08:00)
[2017-10-29] MEDS: ONDANSETRON ODT 4 MG PO PRN ×3 (08:01→20:58)
[2017-10-29] MEDS: FLUOXETINE HCL 20 MG CAPSULE PO SCH (08:06)
[2017-10-29] MEDS: MORPHINE SULFATE 4 MG/ML, 1ML IVPush PRN ×3 (10:14→20:59)
[2017-10-29] MEDS ORDERED: DICYCLOMINE 20 MG TABLET PO PRN (10:30)
[2017-10-29] MEDS: hydrOXyzine 50MG TABLET PO PRN (13:38)
[2017-10-29 14:39] VITALS: BP 113/76
[2017-10-29] MEDS: HEPARIN 5,000 UNITS/ML, 1ML SQ SCH ×2 (15:00→20:01)
[2017-10-29 19:35] VITALS: BP 120/85
[2017-10-29] MEDS: FAMOTIDINE 20 MG TABLET PO SCH (20:51)
[2017-10-29] MEDS: ONDANSETRON 2MG/ML, 2ML IVPush PRN (21:58)
[2017-10-30 01:24] VITALS: BP 108/61
[2017-10-30 06:45] VITALS: BP 109/68
[2017-10-30] MEDS: LACTATED RINGERS 1,000 ML IV SCH ×2 (07:00→17:07)
[2017-10-30 07:07] LABS: ALBUMIN 3.6 g/dL (3.4-5.0); ANION GAP 4 mmol/L (5-15); CALCIUM 8.8 mg/dL (8.5-10.1); CHLORIDE 104 mmol/L (98-107); CREATININE 1.11 mg/dL (0.7-1.3)
[2017-10-30] MEDS: FLUOXETINE HCL 20 MG CAPSULE PO SCH (08:11)
[2017-10-30] MEDS: hydrOXyzine 50MG TABLET PO PRN ×2 (08:11→17:56)
[2017-10-30] MEDS: LITHIUM CARBONATE 300 MG CAPSULE PO SCH ×3 (08:12→19:51)
[2017-10-30] MEDS: LAMOTRIGINE 200 MG TABLET PO SCH (08:12)
[2017-10-30] MEDS: HEPARIN 5,000 UNITS/ML, 1ML SQ SCH ×3 (08:12→23:00)
[2017-10-30] MEDS: ONDANSETRON ODT 4 MG PO PRN (08:16)
[2017-10-30] MEDS: MORPHINE SULFATE 4 MG/ML, 1ML IVPush PRN ×3 (10:10→19:51)
[2017-10-30] MEDS ORDERED: OLANZAPINE 2.5 MG TABLET PO PRN (11:00)
[2017-10-30] MEDS ORDERED: BENZTROPINE 1 MG TABLET PO PRN (11:00)
[2017-10-30] MEDS ORDERED: BENZTROPINE 1 MG/ML, 2 ML IM PRN (11:00)
[2017-10-30 12:25] VITALS: BP 122/88
[2017-10-30] MEDS: OXYcodone IR 5MG TABLET PO PRN ×3 (13:04→21:54)
[2017-10-30 19:39] VITALS: BP 111/74
[2017-10-30] MEDS: FAMOTIDINE 20 MG TABLET PO SCH (19:51)
[2017-10-30] MEDS: ONDANSETRON 2MG/ML, 2ML IVPush PRN (19:51)
[2017-10-30] MEDS ORDERED: MOVIPREP POWDER 1 PREP KIT PO ONE (20:00)
[2017-10-30] MEDS ORDERED: OLANZAPINE 10 MG TABLET PO SCH (21:00)
[2017-10-31 02:55] VITALS: BP 103/60
[2017-10-31] MEDS: LACTATED RINGERS 1,000 ML IV SCH ×2 (03:04→17:55)
[2017-10-31] MEDS: MORPHINE SULFATE 4 MG/ML, 1ML IVPush PRN ×3 (03:11→13:23)
[2017-10-31 04:23] LABS: CLOSTRIDIUM DIFFICILE ANTIGEN POSITIVE; CLOSTRIDIUM DIFFICILE TOXIN NEGATIVE (Negative)
[2017-10-31] MEDS: VANCOMYCIN 50 MG/ML ORAL SUSP PO SCH ×4 (06:00→23:32)
[2017-10-31 06:02] LABS: BASOPHILS # (AUTO) 0.04 x10^3/uL (0-0.1); BASOPHILS % (AUTO) 1 % (0-1); EOSINOPHILS # (AUTO) 0.12 x10^3/uL (0-0.4); EOSINOPHILS % (AUTO) 4 % (1-7); LYMPHOCYTES # (AUTO) 1.65 x10^3/uL (1-3.4); LYMPHOCYTES % (AUTO) 52 % (22-44); MD NO; MEAN CORPUSCULAR HEMOGLOBIN 30.8 pg (27.5-34.5); MEAN CORPUSCULAR HGB CONC 34.7 g/dL (33.2-36.2); MEAN CORPUSCULAR VOLUME 88.8 fL (81-97); MEAN PLATELET VOLUME 8.6 fL (7.4-10.4); MONOCYTES # (AUTO) 0.62 x10^3/uL (0.2-0.8); MONOCYTES % (AUTO) 20 % (2-9); NEUTROPHILS # (AUTO) 0.73 x10^3/uL (1.8-6.8); NEUTROPHILS % (AUTO) 23 % (42-75); PLATELET COUNT 243 x10^3/uL (130-400); RED BLOOD COUNT 4.45 x10^6/uL (4.38-5.82); RED CELL DISTRIBUTION WIDTH 13.5 % (9.4-14.8)
[2017-10-31 06:10] LABS: ALBUMIN 3.4 g/dL (3.4-5.0); ANION GAP 8 mmol/L (5-15); CALCIUM 8.7 mg/dL (8.5-10.1); CHLORIDE 109 mmol/L (98-107); CREATININE 1.18 mg/dL (0.7-1.3)
[2017-10-31] MEDS: HEPARIN 5,000 UNITS/ML, 1ML SQ SCH ×3 (07:00→23:00)
[2017-10-31 07:52] VITALS: BP 103/65
[2017-10-31] MEDS: ONDANSETRON 2MG/ML, 2ML IVPush PRN ×2 (08:06→19:48)
[2017-10-31] MEDS ORDERED: PROPOFOL 10 MG/ML, 20ML ONE (09:02)
[2017-10-31 10:14] LABS: CRYPTOSPORIDIUM ANTIGEN Negative (Negative)
[2017-10-31] MEDS: FLUOXETINE HCL 20 MG CAPSULE PO SCH (10:57)
[2017-10-31] MEDS: LITHIUM CARBONATE 300 MG CAPSULE PO SCH ×3 (10:58→19:48)
[2017-10-31] MEDS: LAMOTRIGINE 200 MG TABLET PO SCH (10:59)
[2017-10-31] MEDS: hydrOXyzine 50MG TABLET PO PRN ×2 (11:03→21:33)
[2017-10-31] MEDS: OXYcodone IR 5MG TABLET PO PRN ×3 (11:03→22:05)
[2017-10-31 14:05] VITALS: BP 118/79
[2017-10-31 19:42] VITALS: BP 118/79
[2017-10-31] MEDS: FAMOTIDINE 20 MG TABLET PO SCH (19:48)
[2017-11-01 02:15] VITALS: BP 101/60
[2017-11-01] MEDS: VANCOMYCIN 50 MG/ML ORAL SUSP PO SCH ×3 (05:13→21:14)
[2017-11-01] MEDS: ONDANSETRON 2MG/ML, 2ML IVPush PRN ×2 (05:13→12:43)
[2017-11-01] MEDS: OXYcodone IR 5MG TABLET PO PRN ×2 (05:13→09:46)
[2017-11-01] MEDS: HEPARIN 5,000 UNITS/ML, 1ML SQ SCH ×3 (05:13→21:16)
[2017-11-01] MEDS: LACTATED RINGERS 1,000 ML IV SCH ×2 (05:13→09:48)
[2017-11-01 08:00] VITALS: BP 113/72
[2017-11-01] MEDS: LITHIUM CARBONATE 300 MG CAPSULE PO SCH ×2 (08:43→21:14)
[2017-11-01] MEDS: FLUOXETINE HCL 20 MG CAPSULE PO SCH (08:43)
[2017-11-01] MEDS: LAMOTRIGINE 200 MG TABLET PO SCH (08:43)
[2017-11-01] MEDS: hydrOXyzine 50MG TABLET PO PRN ×2 (09:46→14:00)
[2017-11-01 12:07] LABS: BASOPHILS # (AUTO) 0.03 x10^3/uL (0-0.1); BASOPHILS % (AUTO) 1 % (0-1); EOSINOPHILS # (AUTO) 0.07 x10^3/uL (0-0.4); EOSINOPHILS % (AUTO) 2 % (1-7); LYMPHOCYTES # (AUTO) 1.34 x10^3/uL (1-3.4); LYMPHOCYTES % (AUTO) 41 % (22-44); MD NO; MEAN CORPUSCULAR HEMOGLOBIN 30.8 pg (27.5-34.5); MEAN CORPUSCULAR HGB CONC 34.7 g/dL (33.2-36.2); MEAN CORPUSCULAR VOLUME 88.7 fL (81-97); MONOCYTES # (AUTO) 0.59 x10^3/uL (0.2-0.8); MONOCYTES % (AUTO) 18 % (2-9); NEUTROPHILS # (AUTO) 1.24 x10^3/uL (1.8-6.8); NEUTROPHILS % (AUTO) 38 % (42-75); PLATELET COUNT 230 x10^3/uL (130-400); RED BLOOD COUNT 4.64 x10^6/uL (4.38-5.82); RED CELL DISTRIBUTION WIDTH 13.2 % (9.4-14.8)
[2017-11-01 12:57] VITALS: BP 139/82
[2017-11-01] MEDS: LORazepam 1MG TABLET PO PRN ×2 (14:00→21:14)
[2017-11-01 20:02] VITALS: BP 116/75
[2017-11-01] MEDS: FAMOTIDINE 20 MG TABLET PO SCH (21:14)
[2017-11-02 02:02] VITALS: BP 120/72
[2017-11-02] MEDS: VANCOMYCIN 50 MG/ML ORAL SUSP PO SCH ×4 (03:11→19:30)
[2017-11-02 03:14] VITALS: BP 104/72
[2017-11-02 06:17] LABS: BASOPHILS # (AUTO) 0.05 x10^3/uL (0-0.1); BASOPHILS % (AUTO) 1 % (0-1); EOSINOPHILS # (AUTO) 0.09 x10^3/uL (0-0.4); EOSINOPHILS % (AUTO) 3 % (1-7); LYMPHOCYTES # (AUTO) 1.43 x10^3/uL (1-3.4); LYMPHOCYTES % (AUTO) 43 % (22-44); MD NO; MEAN CORPUSCULAR HEMOGLOBIN 30.8 pg (27.5-34.5); MEAN CORPUSCULAR HGB CONC 34.7 g/dL (33.2-36.2); MEAN CORPUSCULAR VOLUME 88.7 fL (81-97); MEAN PLATELET VOLUME 9.2 fL (7.4-10.4); MONOCYTES # (AUTO) 0.62 x10^3/uL (0.2-0.8); MONOCYTES % (AUTO) 19 % (2-9); NEUTROPHILS # (AUTO) 1.14 x10^3/uL (1.8-6.8); NEUTROPHILS % (AUTO) 34 % (42-75); PLATELET COUNT 240 x10^3/uL (130-400); RED CELL DISTRIBUTION WIDTH 13.5 % (9.4-14.8)
[2017-11-02 06:22] LABS: ALANINE AMINOTRANSFERASE 25 U/L (12-78); ALBUMIN 3.8 g/dL (3.4-5.0); ANION GAP 7 mmol/L (5-15); CALCIUM 9.1 mg/dL (8.5-10.1); CHLORIDE 104 mmol/L (98-107); CREATININE 1.15 mg/dL (0.7-1.3)
[2017-11-02 06:24] LABS: ALKALINE PHOSPHATASE 103 U/L (45-117); BILIRUBIN,TOTAL 0.6 mg/dL (0.2-1.0); TOTAL PROTEIN 7.5 g/dL (6.4-8.2)
[2017-11-02] MEDS: HEPARIN 5,000 UNITS/ML, 1ML SQ SCH ×3 (07:00→21:34)
[2017-11-02] MEDS: LITHIUM CARBONATE 300 MG CAPSULE PO SCH ×2 (07:53→19:30)
[2017-11-02] MEDS: FLUOXETINE HCL 20 MG CAPSULE PO SCH (07:53)
[2017-11-02] MEDS: LAMOTRIGINE 200 MG TABLET PO SCH (07:53)
[2017-11-02 08:15] VITALS: BP 107/69
[2017-11-02] MEDS: ONDANSETRON ODT 4 MG PO PRN ×2 (08:48→21:19)
[2017-11-02] MEDS: LORazepam 1MG TABLET PO PRN ×3 (08:48→23:06)
[2017-11-02] MEDS: hydrOXyzine 50MG TABLET PO PRN (11:23)
[2017-11-02 12:39] VITALS: BP 125/86
[2017-11-02] MEDS: FAMOTIDINE 20 MG TABLET PO SCH (19:30)
[2017-11-02 20:00] VITALS: BP 132/88
[2017-11-03 00:30] VITALS: BP 126/79
[2017-11-03] MEDS: VANCOMYCIN 50 MG/ML ORAL SUSP PO SCH ×4 (03:20→19:52)
[2017-11-03] MEDS: HEPARIN 5,000 UNITS/ML, 1ML SQ SCH ×3 (07:00→22:03)
[2017-11-03 07:39] VITALS: BP 96/61
[2017-11-03 08:04] LABS: BASOPHILS # (AUTO) 0.06 x10^3/uL (0-0.1); BASOPHILS % (AUTO) 2 % (0-1); EOSINOPHILS # (AUTO) 0.14 x10^3/uL (0-0.4); EOSINOPHILS % (AUTO) 4 % (1-7); LYMPHOCYTES # (AUTO) 1.63 x10^3/uL (1-3.4); LYMPHOCYTES % (AUTO) 44 % (22-44); MD NO; MEAN CORPUSCULAR HEMOGLOBIN 30.4 pg (27.5-34.5); MEAN CORPUSCULAR HGB CONC 34.6 g/dL (33.2-36.2); MONOCYTES # (AUTO) 0.69 x10^3/uL (0.2-0.8); MONOCYTES % (AUTO) 19 % (2-9); NEUTROPHILS # (AUTO) 1.17 x10^3/uL (1.8-6.8); NEUTROPHILS % (AUTO) 32 % (42-75); PLATELET COUNT 269 x10^3/uL (130-400); RED BLOOD COUNT 5.02 x10^6/uL (4.38-5.82); RED CELL DISTRIBUTION WIDTH 13.3 % (9.4-14.8)
[2017-11-03] MEDS ORDERED: LAMOTRIGINE 100 MG TABLET PO SCH (09:00)
[2017-11-03] MEDS: LITHIUM CARBONATE 300 MG CAPSULE PO SCH ×2 (09:19→19:52)
[2017-11-03] MEDS: FLUOXETINE HCL 20 MG CAPSULE PO SCH (09:19)
[2017-11-03] MEDS: hydrOXyzine 50MG TABLET PO PRN ×2 (09:19→16:07)
[2017-11-03] MEDS: LORazepam 1MG TABLET PO PRN (10:49)
[2017-11-03 12:29] VITALS: BP 115/83
[2017-11-03] MEDS: FAMOTIDINE 20 MG TABLET PO SCH (19:52)
[2017-11-03 20:28] VITALS: BP 19/83
[2017-11-03] MEDS: ONDANSETRON ODT 4 MG PO PRN (22:21)
[2017-11-04 02:24] VITALS: BP 100/64
[2017-11-04] MEDS: VANCOMYCIN 50 MG/ML ORAL SUSP PO SCH ×4 (02:53→21:05)
[2017-11-04 05:54] LABS: BASOPHILS # (AUTO) 0.06 x10^3/uL (0-0.1); BASOPHILS % (AUTO) 2 % (0-1); EOSINOPHILS # (AUTO) 0.17 x10^3/uL (0-0.4); EOSINOPHILS % (AUTO) 5 % (1-7); LYMPHOCYTES # (AUTO) 1.75 x10^3/uL (1-3.4); LYMPHOCYTES % (AUTO) 47 % (22-44); MD NO; MEAN CORPUSCULAR HEMOGLOBIN 30.8 pg (27.5-34.5); MEAN CORPUSCULAR HGB CONC 34.9 g/dL (33.2-36.2); MEAN CORPUSCULAR VOLUME 88.1 fL (81-97); MEAN PLATELET VOLUME 9.5 fL (7.4-10.4); MONOCYTES # (AUTO) 0.75 x10^3/uL (0.2-0.8); MONOCYTES % (AUTO) 20 % (2-9); NEUTROPHILS # (AUTO) 1.02 x10^3/uL (1.8-6.8); NEUTROPHILS % (AUTO) 27 % (42-75); PLATELET COUNT 243 x10^3/uL (130-400); RED BLOOD COUNT 4.87 x10^6/uL (4.38-5.82); RED CELL DISTRIBUTION WIDTH 13.1 % (9.4-14.8)
[2017-11-04 06:03] LABS: ANION GAP 6 mmol/L (5-15); CALCIUM 9.1 mg/dL (8.5-10.1); CHLORIDE 104 mmol/L (98-107)
[2017-11-04 06:05] LABS: CREATININE 1.22 mg/dL (0.7-1.3)
[2017-11-04] MEDS: HEPARIN 5,000 UNITS/ML, 1ML SQ SCH ×3 (07:00→22:43)
[2017-11-04 07:07] VITALS: BP 98/65
[2017-11-04] MEDS: LITHIUM CARBONATE 300 MG CAPSULE PO SCH ×2 (08:56→21:05)
[2017-11-04] MEDS: FLUOXETINE HCL 20 MG CAPSULE PO SCH (08:57)
[2017-11-04] MEDS: hydrOXyzine 50MG TABLET PO PRN ×3 (08:57→21:06)
[2017-11-04] MEDS: LAMOTRIGINE 100 MG TABLET PO SCH (08:57)
[2017-11-04] MEDS: LORazepam 1MG TABLET PO PRN ×3 (10:26→22:41)
[2017-11-04] MEDS: ONDANSETRON ODT 4 MG PO PRN ×2 (10:29→21:06)
[2017-11-04 13:28] VITALS: BP 121/88
[2017-11-04 20:34] VITALS: BP 122/86
[2017-11-04] MEDS: FAMOTIDINE 20 MG TABLET PO SCH (21:05)
[2017-11-05 01:03] VITALS: BP 104/65
[2017-11-05] MEDS: VANCOMYCIN 50 MG/ML ORAL SUSP PO SCH ×4 (03:02→21:07)
[2017-11-05] MEDS: HEPARIN 5,000 UNITS/ML, 1ML SQ SCH ×3 (07:00→23:00)
[2017-11-05 08:36] VITALS: BP 106/69
[2017-11-05] MEDS: LORazepam 1MG TABLET PO PRN ×4 (09:03→23:11)
[2017-11-05] MEDS: LAMOTRIGINE 100 MG TABLET PO SCH (09:04)
[2017-11-05] MEDS: FLUOXETINE HCL 20 MG CAPSULE PO SCH (09:04)
[2017-11-05] MEDS: LITHIUM CARBONATE 300 MG CAPSULE PO SCH ×2 (09:04→21:07)
[2017-11-05] MEDS: hydrOXyzine 50MG TABLET PO PRN ×3 (09:31→21:17)
[2017-11-05] MEDS: ONDANSETRON ODT 4 MG PO PRN ×4 (09:31→23:11)
[2017-11-05 13:30] VITALS: BP 108/76
[2017-11-05 18:35] VITALS: BP 121/85
[2017-11-05] MEDS: FAMOTIDINE 20 MG TABLET PO SCH (21:08)
[2017-11-06 02:50] VITALS: BP 106/68
[2017-11-06] MEDS: VANCOMYCIN 50 MG/ML ORAL SUSP PO SCH ×4 (03:02→21:39)
[2017-11-06 05:55] LABS: CHLORIDE 105 mmol/L (98-107)
[2017-11-06 05:59] LABS: MEAN CORPUSCULAR HEMOGLOBIN 30.9 pg (27.5-34.5); MEAN CORPUSCULAR HGB CONC 35.2 g/dL (33.2-36.2); MEAN PLATELET VOLUME 9.1 fL (7.4-10.4); PLATELET COUNT 217 x10^3/uL (130-400); RED BLOOD COUNT 4.56 x10^6/uL (4.38-5.82); RED CELL DISTRIBUTION WIDTH 13.2 % (9.4-14.8)
[2017-11-06 06:09] LABS: ALANINE AMINOTRANSFERASE 28 U/L (12-78); ALBUMIN 3.6 g/dL (3.4-5.0); ALKALINE PHOSPHATASE 90 U/L (45-117); ANION GAP 7 mmol/L (5-15); BILIRUBIN,TOTAL 0.4 mg/dL (0.2-1.0); CALCIUM 8.6 mg/dL (8.5-10.1)
[2017-11-06 06:20] LABS: MD YES
[2017-11-06 06:26] LABS: BAND#(MANUAL) 0.13 x10^3/uL; BANDS%(MANUAL) 4 % (0-7); BASOS#(MANUAL) 0.03 x10^3/uL (0-0.1); BASOS% (MANUAL) 1 % (0-1); EOS#(MANUAL) 0.06 x10^3/uL (0.0-0.4); EOS% (MANUAL) 2 % (1-7); LYMPHS% (MANUAL) 50 % (22-44); METAMYELOCYTES# (MANUAL) 0.03 x10^3/uL (0-0); METAMYELOCYTES% (MANUAL) 1 % (0-1); MONOS#(MANUAL) 0.26 x10^3/uL (0.3-2.7); MONOS% (MANUAL) 8 % (2-9); SEG#(MANUAL) 1.09 x10^3/uL (1.8-6.8); SEGS% (MANUAL) 34 % (42-75)
[2017-11-06 06:28] LABS: <PLATELET ESTIMATE> ADEQUATE; <PLT MORPHOLOGY> NORMAL PLT MORPH; <RBC MORPHOLOGY> NORMAL
[2017-11-06] MEDS: HEPARIN 5,000 UNITS/ML, 1ML SQ SCH ×3 (07:00→23:00)
[2017-11-06 07:06] VITALS: BP 109/72
[2017-11-06] MEDS: LAMOTRIGINE 100 MG TABLET PO SCH (08:55)
[2017-11-06] MEDS: ONDANSETRON ODT 4 MG PO PRN ×3 (08:56→21:39)
[2017-11-06] MEDS: LITHIUM CARBONATE 300 MG CAPSULE PO SCH ×2 (08:56→21:39)
[2017-11-06] MEDS: FLUOXETINE HCL 20 MG CAPSULE PO SCH (08:56)
[2017-11-06] MEDS: LORazepam 1MG TABLET PO PRN ×3 (10:29→23:07)
[2017-11-06 13:00] VITALS: BP 128/82
[2017-11-06] MEDS ORDERED: LURASIDONE 20 MG TABLET PO SCH (14:00)
[2017-11-06] MEDS: hydrOXyzine 50MG TABLET PO PRN ×2 (15:10→21:39)
[2017-11-06 19:26] VITALS: BP 114/74
[2017-11-06 20:13] LABS: AMPHETAMINE SCREEN, URINE Negative (Negative); BARBITURATE SCREEN, URINE Negative (Negative); BENZODIAZEPINE SCREEN, URINE Negative (Negative); CANNABINOID SCREEN, URINE Negative (Negative); COCAINE SCREEN, URINE Negative (Negative); METHADONE SCREEN, URINE Negative (Negative); OPIATE SCREEN, URINE Negative (Negative)
[2017-11-06] MEDS: FAMOTIDINE 20 MG TABLET PO SCH (21:39)
[2017-11-07 01:17] VITALS: BP 107/71
[2017-11-07] MEDS: VANCOMYCIN 50 MG/ML ORAL SUSP PO SCH ×4 (03:15→20:04)
[2017-11-07 05:21] LABS: MEAN CORPUSCULAR HEMOGLOBIN 30.9 pg (27.5-34.5); MEAN CORPUSCULAR HGB CONC 34.7 g/dL (33.2-36.2); MEAN CORPUSCULAR VOLUME 89.1 fL (81-97); MEAN PLATELET VOLUME 9.5 fL (7.4-10.4); PLATELET COUNT 224 x10^3/uL (130-400); RED BLOOD COUNT 4.66 x10^6/uL (4.38-5.82); RED CELL DISTRIBUTION WIDTH 13.4 % (9.4-14.8)
[2017-11-07 05:46] LABS: MD YES
[2017-11-07 05:50] LABS: BAND#(MANUAL) 0.13 x10^3/uL; BANDS%(MANUAL) 4 % (0-7); EOS% (MANUAL) 9 % (1-7); LYMPH#(MANUAL) 1.75 x10^3/uL (1-3.4); LYMPHS% (MANUAL) 53 % (22-44); MONOS#(MANUAL) 0.33 x10^3/uL (0.3-2.7); MONOS% (MANUAL) 10 % (2-9); SEG#(MANUAL) 0.79 x10^3/uL (1.8-6.8); SEGS% (MANUAL) 24 % (42-75)
[2017-11-07 05:51] LABS: <PLATELET ESTIMATE> ADEQUATE; <PLT MORPHOLOGY> NORMAL PLT MORPH; <RBC MORPHOLOGY> NORMAL
[2017-11-07] MEDS: HEPARIN 5,000 UNITS/ML, 1ML SQ SCH ×3 (07:00→20:07)
[2017-11-07 07:15] VITALS: BP 113/81
[2017-11-07] MEDS: LITHIUM CARBONATE 300 MG CAPSULE PO SCH ×2 (08:54→20:03)
[2017-11-07] MEDS: ONDANSETRON ODT 4 MG PO PRN ×3 (08:54→21:09)
[2017-11-07] MEDS: FLUOXETINE HCL 20 MG CAPSULE PO SCH (08:54)
[2017-11-07] MEDS: LORazepam 1MG TABLET PO PRN ×3 (08:55→21:09)
[2017-11-07] MEDS: hydrOXyzine 50MG TABLET PO PRN ×2 (10:37→17:32)
[2017-11-07] MEDS ORDERED: LURASIDONE 20 MG TABLET PO SCH (12:00)
[2017-11-07] MEDS: LURASIDONE 20 MG TABLET PO SCH (13:13)
[2017-11-07 13:22] VITALS: BP 115/85
[2017-11-07 19:38] VITALS: BP 114/79
[2017-11-07] MEDS: FAMOTIDINE 20 MG TABLET PO SCH (20:03)
[2017-11-08 03:27] VITALS: BP 111/68
[2017-11-08] MEDS: VANCOMYCIN 50 MG/ML ORAL SUSP PO SCH ×4 (03:34→21:05)
[2017-11-08] MEDS: hydrOXyzine 50MG TABLET PO PRN ×3 (03:34→18:03)
[2017-11-08] MEDS: HEPARIN 5,000 UNITS/ML, 1ML SQ SCH ×3 (05:26→21:09)
[2017-11-08 06:01] LABS: MEAN CORPUSCULAR HEMOGLOBIN 30.6 pg (27.5-34.5); MEAN CORPUSCULAR HGB CONC 34.5 g/dL (33.2-36.2); MEAN CORPUSCULAR VOLUME 88.9 fL (81-97); MEAN PLATELET VOLUME 9.5 fL (7.4-10.4); PLATELET COUNT 219 x10^3/uL (130-400); RED BLOOD COUNT 4.83 x10^6/uL (4.38-5.82); RED CELL DISTRIBUTION WIDTH 12.9 % (9.4-14.8)
[2017-11-08 06:28] LABS: BAND#(MANUAL) 0.07 x10^3/uL; BANDS%(MANUAL) 2 % (0-7); LYMPH#(MANUAL) 1.85 x10^3/uL (1-3.4); LYMPHS% (MANUAL) 56 % (22-44); MD YES; SEG#(MANUAL) 0.79 x10^3/uL (1.8-6.8); SEGS% (MANUAL) 24 % (42-75)
[2017-11-08 06:29] LABS: <PLATELET ESTIMATE> ADEQUATE; <PLT MORPHOLOGY> NORMAL PLT MORPH; <RBC MORPHOLOGY> NORMAL; BASOS#(MANUAL) 0.03 x10^3/uL (0-0.1); BASOS% (MANUAL) 1 % (0-1); EOS#(MANUAL) 0.03 x10^3/uL (0.0-0.4); EOS% (MANUAL) 1 % (1-7); MONOS#(MANUAL) 0.53 x10^3/uL (0.3-2.7); MONOS% (MANUAL) 16 % (2-9)
[2017-11-08 07:08] VITALS: BP 112/78
[2017-11-08] MEDS: LITHIUM CARBONATE 300 MG CAPSULE PO SCH ×2 (09:16→21:06)
[2017-11-08] MEDS: LORazepam 1MG TABLET PO PRN ×3 (09:16→21:06)
[2017-11-08] MEDS: LAMOTRIGINE 100 MG TABLET PO SCH (09:16)
[2017-11-08] MEDS: FLUOXETINE HCL 20 MG CAPSULE PO SCH (09:16)
[2017-11-08] MEDS: LURASIDONE 20 MG TABLET PO SCH (12:16)
[2017-11-08] MEDS: ONDANSETRON ODT 4 MG PO PRN ×2 (12:30→21:06)
[2017-11-08 14:15] VITALS: BP 115/75
[2017-11-08 18:59] VITALS: BP 118/83
[2017-11-08] MEDS: FAMOTIDINE 20 MG TABLET PO SCH (21:06)
[2017-11-09 00:55] VITALS: BP 98/61
[2017-11-09] MEDS: ONDANSETRON ODT 4 MG PO PRN ×2 (03:00→19:29)
[2017-11-09] MEDS: VANCOMYCIN 50 MG/ML ORAL SUSP PO SCH ×4 (03:00→20:54)
[2017-11-09] MEDS: LORazepam 1MG TABLET PO PRN ×2 (03:00→19:30)
[2017-11-09] MEDS: HEPARIN 5,000 UNITS/ML, 1ML SQ SCH ×3 (05:06→20:55)
[2017-11-09 06:44] VITALS: BP 108/72
[2017-11-09 06:58] LABS: BASOPHILS # (AUTO) 0.08 x10^3/uL (0-0.1); BASOPHILS % (AUTO) 2 % (0-1); EOSINOPHILS # (AUTO) 0.18 x10^3/uL (0-0.4); EOSINOPHILS % (AUTO) 5 % (1-7); LYMPHOCYTES # (AUTO) 1.53 x10^3/uL (1-3.4); LYMPHOCYTES % (AUTO) 42 % (22-44); MD NO; MEAN CORPUSCULAR HEMOGLOBIN 30.1 pg (27.5-34.5); MEAN CORPUSCULAR VOLUME 88.5 fL (81-97); MEAN PLATELET VOLUME 9.2 fL (7.4-10.4); MONOCYTES # (AUTO) 0.71 x10^3/uL (0.2-0.8); MONOCYTES % (AUTO) 20 % (2-9); NEUTROPHILS # (AUTO) 1.14 x10^3/uL (1.8-6.8); NEUTROPHILS % (AUTO) 31 % (42-75); PLATELET COUNT 218 x10^3/uL (130-400); RED BLOOD COUNT 4.88 x10^6/uL (4.38-5.82); RED CELL DISTRIBUTION WIDTH 12.9 % (9.4-14.8)
[2017-11-09 12:19] VITALS: BP 128/88
[2017-11-09] MEDS ORDERED: LORazepam 2 MG/ML, 1ML IVPush ONE (13:30)
[2017-11-09] MEDS ORDERED: LIDOCAINE-MPF 2%, 2ML ONE (14:25)
[2017-11-09] MEDS ORDERED: FLUMAZENIL 0.1 MG/1 ML, 5ML ONE (14:42)
[2017-11-09] MEDS ORDERED: FENTANYL PF 100 MCG/2ML ONE (14:42)
[2017-11-09] MEDS ORDERED: MIDAZOLAM 1 MG/ML, 5ML ONE (14:42)
[2017-11-09] MEDS ORDERED: NALOXONE 1 MG/ML, 2ML ONE (14:42)
[2017-11-09] MEDS: LURASIDONE 20 MG TABLET PO SCH (16:43)
[2017-11-09] MEDS: LAMOTRIGINE 100 MG TABLET PO SCH (16:43)
[2017-11-09] MEDS: FLUOXETINE HCL 20 MG CAPSULE PO SCH (16:43)
[2017-11-09] MEDS: LITHIUM CARBONATE 300 MG CAPSULE PO SCH ×2 (16:43→19:30)
[2017-11-09 18:49] VITALS: BP 122/83
[2017-11-09] MEDS: hydrOXyzine 50MG TABLET PO PRN (20:54)
[2017-11-09] MEDS: FAMOTIDINE 20 MG TABLET PO SCH (20:55)
[2017-11-10 01:02] VITALS: BP 112/79
[2017-11-10] MEDS: VANCOMYCIN 50 MG/ML ORAL SUSP PO SCH ×4 (03:02→22:10)
[2017-11-10] MEDS: LORazepam 1MG TABLET PO PRN ×4 (03:02→22:10)
[2017-11-10] MEDS: ONDANSETRON ODT 4 MG PO PRN ×4 (03:02→22:10)
[2017-11-10 05:50] LABS: BASOPHILS # (AUTO) 0.07 x10^3/uL (0-0.1); BASOPHILS % (AUTO) 2 % (0-1); EOSINOPHILS # (AUTO) 0.16 x10^3/uL (0-0.4); EOSINOPHILS % (AUTO) 4 % (1-7); LYMPHOCYTES # (AUTO) 1.46 x10^3/uL (1-3.4); LYMPHOCYTES % (AUTO) 39 % (22-44); MD NO; MEAN CORPUSCULAR VOLUME 88.7 fL (81-97); MEAN PLATELET VOLUME 9.1 fL (7.4-10.4); MONOCYTES # (AUTO) 0.67 x10^3/uL (0.2-0.8); MONOCYTES % (AUTO) 18 % (2-9); NEUTROPHILS # (AUTO) 1.43 x10^3/uL (1.8-6.8); NEUTROPHILS % (AUTO) 38 % (42-75); PLATELET COUNT 219 x10^3/uL (130-400); RED BLOOD COUNT 4.65 x10^6/uL (4.38-5.82); RED CELL DISTRIBUTION WIDTH 13.1 % (9.4-14.8)
[2017-11-10 05:54] LABS: ALBUMIN 3.5 g/dL (3.4-5.0); ANION GAP 6 mmol/L (5-15); CALCIUM 8.6 mg/dL (8.5-10.1); CHLORIDE 105 mmol/L (98-107)
[2017-11-10 05:55] LABS: CREATININE 1.06 mg/dL (0.7-1.3)
[2017-11-10] MEDS: HEPARIN 5,000 UNITS/ML, 1ML SQ SCH ×3 (06:34→23:00)
[2017-11-10 08:30] VITALS: BP 122/87
[2017-11-10] MEDS: LITHIUM CARBONATE 300 MG CAPSULE PO SCH ×2 (09:06→22:10)
[2017-11-10] MEDS: LAMOTRIGINE 100 MG TABLET PO SCH (09:06)
[2017-11-10] MEDS: FLUOXETINE HCL 20 MG CAPSULE PO SCH (09:06)
[2017-11-10] MEDS: hydrOXyzine 50MG TABLET PO PRN ×3 (09:27→22:36)
[2017-11-10] MEDS: LURASIDONE 20 MG TABLET PO SCH (12:57)
[2017-11-10 14:30] VITALS: BP 120/79
[2017-11-10 18:46] VITALS: BP 117/78
[2017-11-10] MEDS: FAMOTIDINE 20 MG TABLET PO SCH (22:10)
[2017-11-11] MEDS: VANCOMYCIN 50 MG/ML ORAL SUSP PO SCH ×4 (03:18→21:02)
[2017-11-11 03:19] VITALS: BP 108/76
[2017-11-11] MEDS: HEPARIN 5,000 UNITS/ML, 1ML SQ SCH ×3 (07:00→23:00)
[2017-11-11 08:18] VITALS: BP 114/76
[2017-11-11] MEDS: hydrOXyzine 50MG TABLET PO PRN ×3 (08:30→21:02)
[2017-11-11] MEDS: LAMOTRIGINE 100 MG TABLET PO SCH (08:30)
[2017-11-11] MEDS: LORazepam 1MG TABLET PO PRN ×3 (08:30→21:02)
[2017-11-11] MEDS: ONDANSETRON ODT 4 MG PO PRN ×3 (08:30→21:02)
[2017-11-11] MEDS: LITHIUM CARBONATE 300 MG CAPSULE PO SCH ×2 (08:30→21:02)
[2017-11-11] MEDS: FLUOXETINE HCL 20 MG CAPSULE PO SCH (08:30)
[2017-11-11] MEDS: LURASIDONE 20 MG TABLET PO SCH (12:23)
[2017-11-11 12:55] VITALS: BP 122/74
[2017-11-11 19:37] VITALS: BP 123/85
[2017-11-11] MEDS: FAMOTIDINE 20 MG TABLET PO SCH (21:02)
[2017-11-12] MEDS: VANCOMYCIN 50 MG/ML ORAL SUSP PO SCH ×4 (03:18→21:13)
[2017-11-12 03:49] VITALS: BP 122/78
[2017-11-12] MEDS: HEPARIN 5,000 UNITS/ML, 1ML SQ SCH ×3 (07:00→23:00)
[2017-11-12 08:35] VITALS: BP 118/79
[2017-11-12] MEDS: LORazepam 1MG TABLET PO PRN ×3 (08:43→21:12)
[2017-11-12] MEDS: ONDANSETRON ODT 4 MG PO PRN ×3 (08:43→21:12)
[2017-11-12] MEDS: LITHIUM CARBONATE 300 MG CAPSULE PO SCH ×2 (08:43→21:13)
[2017-11-12] MEDS: FLUOXETINE HCL 20 MG CAPSULE PO SCH (08:44)
[2017-11-12] MEDS: LAMOTRIGINE 100 MG TABLET PO SCH (08:44)
[2017-11-12] MEDS: LURASIDONE 20 MG TABLET PO SCH (12:22)
[2017-11-12] MEDS: hydrOXyzine 50MG TABLET PO PRN ×2 (12:37→21:12)
[2017-11-12 14:02] VITALS: BP 112/77
[2017-11-12 21:05] VITALS: BP 123/81
[2017-11-12] MEDS: FAMOTIDINE 20 MG TABLET PO SCH (21:13)
[2017-11-13] MEDS: VANCOMYCIN 50 MG/ML ORAL SUSP PO SCH ×4 (03:16→22:29)
[2017-11-13 03:18] VITALS: BP 109/73
[2017-11-13] MEDS: HEPARIN 5,000 UNITS/ML, 1ML SQ SCH ×3 (07:00→22:31)
[2017-11-13 07:50] VITALS: BP 115/86
[2017-11-13] MEDS: FLUOXETINE HCL 20 MG CAPSULE PO SCH (09:24)
[2017-11-13] MEDS: ONDANSETRON ODT 4 MG PO PRN ×3 (09:24→22:29)
[2017-11-13] MEDS: LAMOTRIGINE 100 MG TABLET PO SCH (09:25)
[2017-11-13] MEDS: LITHIUM CARBONATE 300 MG CAPSULE PO SCH ×2 (09:25→22:33)
[2017-11-13] MEDS: LORazepam 1MG TABLET PO PRN ×3 (09:25→22:29)
[2017-11-13 10:06] LABS: BASOPHILS % (AUTO) 2 % (0-1); EOSINOPHILS # (AUTO) 0.15 x10^3/uL (0-0.4); EOSINOPHILS % (AUTO) 3 % (1-7); LYMPHOCYTES # (AUTO) 1.53 x10^3/uL (1-3.4); LYMPHOCYTES % (AUTO) 30 % (22-44); MD NO; MEAN CORPUSCULAR HEMOGLOBIN 30.8 pg (27.5-34.5); MEAN CORPUSCULAR HGB CONC 34.8 g/dL (33.2-36.2); MEAN CORPUSCULAR VOLUME 88.5 fL (81-97); MEAN PLATELET VOLUME 9.1 fL (7.4-10.4); MONOCYTES # (AUTO) 0.53 x10^3/uL (0.2-0.8); MONOCYTES % (AUTO) 10 % (2-9); NEUTROPHILS # (AUTO) 2.82 x10^3/uL (1.8-6.8); NEUTROPHILS % (AUTO) 55 % (42-75); PLATELET COUNT 250 x10^3/uL (130-400); RED BLOOD COUNT 5.29 x10^6/uL (4.38-5.82)
[2017-11-13 10:07] LABS: HEMOGRAM NOTE RECHECKED
[2017-11-13] MEDS: hydrOXyzine 50MG TABLET PO PRN ×2 (13:05→22:29)
[2017-11-13] MEDS: LURASIDONE 20 MG TABLET PO SCH (13:05)
[2017-11-13 14:00] VITALS: BP 119/86
[2017-11-13] MEDS: FAMOTIDINE 20 MG TABLET PO SCH (22:29)
[2017-11-13 22:37] VITALS: BP 122/84
[2017-11-14 04:00] VITALS: BP 113/79
[2017-11-14] MEDS: VANCOMYCIN 50 MG/ML ORAL SUSP PO SCH ×4 (04:00→19:33)
[2017-11-14] MEDS: HEPARIN 5,000 UNITS/ML, 1ML SQ SCH ×3 (07:00→21:45)
[2017-11-14 07:51] VITALS: BP 109/75
[2017-11-14] MEDS: FLUOXETINE HCL 20 MG CAPSULE PO SCH (08:50)
[2017-11-14] MEDS: LORazepam 1MG TABLET PO PRN ×3 (08:50→22:14)
[2017-11-14] MEDS: LITHIUM CARBONATE 300 MG CAPSULE PO SCH ×2 (08:50→19:33)
[2017-11-14] MEDS: ONDANSETRON ODT 4 MG PO PRN ×3 (08:51→22:14)
[2017-11-14] MEDS: LAMOTRIGINE 25 MG TABLET PO SCH (08:51)
[2017-11-14] MEDS: hydrOXyzine 50MG TABLET PO PRN (13:08)
[2017-11-14] MEDS: LURASIDONE 20 MG TABLET PO SCH (13:08)
[2017-11-14 13:13] LABS: BASOPHILS # (AUTO) 0.08 x10^3/uL (0-0.1); BASOPHILS % (AUTO) 1 % (0-1); EOSINOPHILS # (AUTO) 0.14 x10^3/uL (0-0.4); EOSINOPHILS % (AUTO) 2 % (1-7); LYMPHOCYTES # (AUTO) 1.46 x10^3/uL (1-3.4); LYMPHOCYTES % (AUTO) 22 % (22-44); MD NO; MEAN CORPUSCULAR HEMOGLOBIN 30.3 pg (27.5-34.5); MEAN CORPUSCULAR HGB CONC 34.2 g/dL (33.2-36.2); MEAN CORPUSCULAR VOLUME 88.5 fL (81-97); MEAN PLATELET VOLUME 8.9 fL (7.4-10.4); MONOCYTES % (AUTO) 8 % (2-9); NEUTROPHILS # (AUTO) 4.46 x10^3/uL (1.8-6.8); NEUTROPHILS % (AUTO) 67 % (42-75); PLATELET COUNT 278 x10^3/uL (130-400); RED BLOOD COUNT 5.34 x10^6/uL (4.38-5.82); RED CELL DISTRIBUTION WIDTH 12.9 % (9.4-14.8)
[2017-11-14 13:58] VITALS: BP 128/92
[2017-11-14] MEDS: FAMOTIDINE 20 MG TABLET PO SCH (19:33)
[2017-11-14 20:58] VITALS: BP 119/81
[2017-11-15] MEDS: VANCOMYCIN 50 MG/ML ORAL SUSP PO SCH ×2 (02:50→08:18)
[2017-11-15 03:32] VITALS: BP 101/70
[2017-11-15] MEDS: HEPARIN 5,000 UNITS/ML, 1ML SQ SCH (07:00)
[2017-11-15 07:40] VITALS: BP 113/84
[2017-11-15] MEDS: FLUOXETINE HCL 20 MG CAPSULE PO SCH (08:17)
[2017-11-15] MEDS: ONDANSETRON ODT 4 MG PO PRN (08:17)
[2017-11-15] MEDS: LAMOTRIGINE 25 MG TABLET PO SCH (08:17)
[2017-11-15] MEDS: LORazepam 1MG TABLET PO PRN (08:17)
[2017-11-15] MEDS: LITHIUM CARBONATE 300 MG CAPSULE PO SCH (08:18)
[2017-11-15] MEDS ORDERED: FLUO20CA8 PO (10:27)
[2017-11-15] MEDS ORDERED: LURA20TA PO (10:27)
[2017-11-15] MEDS ORDERED: LAMO25TA PO (10:27)
[2017-11-15] MEDS ORDERED: FAMO20TA7 PO (10:27)
[2017-11-15] MEDS ORDERED: LITH300C PO (10:27)
== END 2017-11-15 12:13 | disposition home or self-care (01) | DRG 372 ==
LOC: ED 16:12 → 3NE 16:30
PROVIDERS: ADMIT Internal Medicine; ATTEND Family Medicine
PROC: 0DB68ZX Excision of Stomach, Via Natural or Artificial Opening Endoscopic, Diagnostic (ICD-10-PCS; 2017-10-31)
PROC: 0DBB8ZX Excision of Ileum, Via Natural or Artificial Opening Endoscopic, Diagnostic (ICD-10-PCS; 2017-10-31)
PROC: 0DBE8ZX Excision of Large Intestine, Via Natural or Artificial Opening Endoscopic, Diagnostic (ICD-10-PCS; 2017-10-31)
PROC: 0DB98ZX Excision of Duodenum, Via Natural or Artificial Opening Endoscopic, Diagnostic (ICD-10-PCS; principal; 2017-10-31 09:00)
PROC: 07DR3ZX Extraction of Iliac Bone Marrow, Percutaneous Approach, Diagnostic (ICD-10-PCS; 2017-11-09)
DX: A04.72 Enterocolitis due to Clostridium difficile, not specified as recurrent (principal); K86.1 Other chronic pancreatitis; D70.9 Neutropenia, unspecified; E86.0 Dehydration; E87.6 Hypokalemia; F25.0 Schizoaffective disorder, bipolar type; F41.9 Anxiety disorder, unspecified; K29.70 Gastritis, unspecified, without bleeding; K44.9 Diaphragmatic hernia without obstruction or gangrene; K57.30 Diverticulosis of large intestine without perforation or abscess without bleeding; K64.4 Residual hemorrhoidal skin tags; K64.8 Other hemorrhoids; K83.8 Other specified diseases of biliary tract; R45.850 Homicidal ideations; Z79.899 Other long term (current) drug therapy; Z81.8 Family history of other mental and behavioral disorders; Z87.891 Personal history of nicotine dependence; Z91.410 Personal history of adult physical and sexual abuse; Z91.411 Personal history of adult psychological abuse; Z91.5 Personal history of self-harm; Z80.0 Family history of malignant neoplasm of digestive organs
CPT/HCPCS: 36415; 74018; 74245; 87046; 87427; 87806; 99285; J3370; S0028; 38222; 71045; 74177; 74181; 76700; 77012; 80048; 80053; 80178; 80307; 81003; 82040; 82150; 82390; 82550; 83516; 83605; 83615; 83690; 83735; 84100; 84484; 84550; 85025; 85060; 85097; 85610; 85651; 85730; 86038; 86140; 86141; 86235; 86704; 86706; 86708; 86803; 87040; 87324; 87328; 87329; 87340; 88237; 88264; 88280; 88305; 88311; 88313; 89055; 93005; 96361; 96374; 96375; 96376; 99156; 99157; J1644; J2250; J2405; J2704; J3010; J3480; J3490; Q0162; Q9963; Q9967; G0475; J2060; J2310; J7030; J7040; J7120

== ENCOUNTER 2018-02-21 13:56 | Emergency (ER) | payer MEDICAID, OTHER ==
[~2018-02-21] VITALS: Ht 167.6 cm; Wt 77.9 kg
[~2018-02-21 13:56] MED LIST: BUSP10TA PO; FAMO20TA7 PO; FLUO20CA19 PO; FLUO20CA8 PO; HYDR50TA13 PO; LAMO200T49 PO; LAMO25TA PO; LITH300C PO; LORA2TAB PO; LURA20TA PO
[2018-02-21 13:59] VITALS: BP 140/93
== END 2018-02-21 15:41 | disposition home or self-care (01) ==
LOC: ED 15:35
DX: F20.9 Schizophrenia, unspecified (principal); F12.10 Cannabis abuse, uncomplicated; Z90.89 Acquired absence of other organs; Z76.0 Encounter for issue of repeat prescription; Z87.891 Personal history of nicotine dependence; Z90.49 Acquired absence of other specified parts of digestive tract
CPT/HCPCS: 99283

== ENCOUNTER 2018-06-15 10:31 | Emergency (ER) | payer MEDICAID ==
[~2018-06-15] VITALS: Ht 170.2 cm; Wt 79.5 kg
[~2018-06-15 10:31] MED LIST changes: -LAMO25TA PO; +LAMO25TA9 PO
[2018-06-15] MEDS ORDERED: FLUO40CA2 PO (11:21)
[2018-06-15] MEDS ORDERED: BUSP30TA PO (11:22)
[2018-06-15] MEDS ORDERED: MIRT45TA3 PO (11:23)
[2018-06-15] MEDS ORDERED: HYDR50CA2 PO (11:23)
[2018-06-15] MEDS ORDERED: TRAZ50TA66 PO (11:24)
[2018-06-15] MEDS ORDERED: ASCO500T12 PO (11:25)
--- NOTE | 2018-06-15 11:44 | NUR ---
ERP at bedside
[2018-06-15] MEDS ORDERED: ONDANSETRON 2MG/ML, 2ML ONE ×2 (11:58→14:12)
[2018-06-15] MEDS ORDERED: MORPHINE SULFATE 4 MG/ML, 1ML ONE ×3 (11:58→14:17)
[2018-06-15] MEDS ORDERED: FAMOTIDINE 20 MG/2 ML ONE (11:58)
[2018-06-15] MEDS: MORPHINE SULFATE 4 MG/ML, 1ML IVPush PRN ×2 (12:00→14:19)
[2018-06-15] MEDS ORDERED: FAMOTIDINE 20 MG/2 ML IVPush ONE (12:00)
[2018-06-15] MEDS ORDERED: SODIUM CHLORIDE FLUSH 10ML SYR IVF ONE (12:00)
[2018-06-15] MEDS ORDERED: ONDANSETRON 2MG/ML, 2ML IVPush ONE ×2 (12:00→14:00)
--- NOTE | 2018-06-15 12:06 | NUR ---
FLOAT RN AT BEDSIDE. PT REPORTS 01/03 PAIN. MEDICATED ORDERED ON MAY. CONTINUOUS SPO2 MONITORING IN PLACE. CALL LIGHT W/IN REACH. PT DENIES FURTHER NEEDS AT THIS TIME.
--- NOTE | 2018-06-15 12:23 | NUR ---
PT AWARE OF NEED FOR UA, UNABLE TO VOID AT THIS TIME.
[2018-06-15 12:30] LABS: BASOPHILS # (AUTO) 0.03 x10^3/uL (0-0.1); BASOPHILS % (AUTO) 0 % (0-1); EOSINOPHILS # (AUTO) 0.01 x10^3/uL (0-0.4); EOSINOPHILS % (AUTO) 0 % (1-7); LYMPHOCYTES # (AUTO) 1.44 x10^3/uL (1-3.4); LYMPHOCYTES % (AUTO) 19 % (22-44); MD NO; MEAN CORPUSCULAR HEMOGLOBIN 29.1 pg (27.5-34.5); MEAN CORPUSCULAR HGB CONC 33.3 g/dL (33.2-36.2); MEAN CORPUSCULAR VOLUME 87.3 fL (81-97); MEAN PLATELET VOLUME 9.6 fL (7.4-10.4); MONOCYTES # (AUTO) 0.35 x10^3/uL (0.2-0.8); MONOCYTES % (AUTO) 5 % (2-9); NEUTROPHILS # (AUTO) 5.81 x10^3/uL (1.8-6.8); NEUTROPHILS % (AUTO) 76 % (42-75); PLATELET COUNT 237 x10^3/uL (130-400); RED BLOOD COUNT 5.99 x10^6/uL (4.38-5.82); RED CELL DISTRIBUTION WIDTH 13.4 % (9.4-14.8)
[2018-06-15 12:34] LABS: ALANINE AMINOTRANSFERASE 57 U/L (12-78); ALBUMIN 3.9 g/dL (3.4-5.0); ANION GAP 7 mmol/L (5-15); CALCIUM 8.7 mg/dL (8.5-10.1); CHLORIDE 111 mmol/L (98-107); CREATININE 1.05 mg/dL (0.7-1.3)
[2018-06-15 12:36] LABS: ALKALINE PHOSPHATASE 107 U/L (45-117); BILIRUBIN,TOTAL 0.3 mg/dL (0.2-1.0); TOTAL PROTEIN 7.8 g/dL (6.4-8.2)
--- NOTE | 2018-06-15 12:58 | NUR ---
Patient given water. Aware of need of urine sample.
[2018-06-15 14:22] VITALS: BP 124/85
[2018-06-15 14:30] LABS: MICROSCOPIC NOT IND
[2018-06-15 14:37] LABS: CULTURE INDICATED? NO
--- NOTE | 2018-06-15 15:26 | NUR ---
Patient/Caregiver given discharge instructions and they have confirmed that they understand the instructions. Patient ambulatory with steady gait.
== END 2018-06-15 15:27 | disposition home or self-care (01) ==
LOC: ED 12:29
DX: K29.00 Acute gastritis without bleeding (principal); Z90.49 Acquired absence of other specified parts of digestive tract; F20.9 Schizophrenia, unspecified
CPT/HCPCS: 36415; 80053; 81003; 83690; 85025; 96374; 96375; 96376; 99283; J2405; J3490

== ENCOUNTER 2018-09-08 17:17 | Emergency (ER) | payer MEDICAID ==
[~2018-09-08] VITALS: Ht 170.2 cm; Wt 77.9 kg
[~2018-09-08 17:17] MED LIST changes: +ASCO500T12 PO; +BUSP30TA PO; +FLUO40CA2 PO; +HYDR50CA2 PO; +MIRT45TA3 PO; +TRAZ50TA66 PO
[2018-09-08 17:19] VITALS: BP 132/83
[2018-09-08] MEDS ORDERED: ONDANSETRON ODT 4 MG ONE (17:39)
[2018-09-08] MEDS ORDERED: LORazepam 1MG TABLET ONE (17:39)
[2018-09-08] MEDS ORDERED: ONDANSETRON ODT 4 MG PO ONE (18:00)
[2018-09-08] MEDS ORDERED: LORazepam 1MG TABLET PO ONE (18:00)
--- NOTE | 2018-09-08 18:27 | NUR ---
Patient/Caregiver given discharge instructions and they have confirmed that they understand the instructions. Patient ambulatory with steady gait.
== END 2018-09-08 18:28 | disposition home or self-care (01) ==
LOC: ED 18:20
DX: F41.1 Generalized anxiety disorder (principal); Z76.0 Encounter for issue of repeat prescription; F20.9 Schizophrenia, unspecified; Z90.89 Acquired absence of other organs; Z90.49 Acquired absence of other specified parts of digestive tract
CPT/HCPCS: 99284; Q0162

== ENCOUNTER 2019-02-10 16:05 | Emergency (ER) | payer MEDICAID ==
[~2019-02-10] VITALS: Ht 167.6 cm; Wt 80.2 kg
[~2019-02-10 16:05] MED LIST changes: +ASCO-254 PO; -ASCO500T12 PO
[2019-02-10 16:10] VITALS: BP 128/90
--- NOTE | 2019-02-10 16:29 | NUR ---
FIRST CONTACT WITH PT. [facility]; SPEAKING WITH RN WITH EASE. PT REPORTS WORSENING ANXIETY W/ HX OF SAME. PT REPORTS HX OF ANXIETY/MOOD DISORDERS AND REPORTS COMPLIANCE WITH MEDICATIONS. DENIES SI/SA/HI/AUDITORY OR VISUAL HALLUCINATIONS. FAMILY AT BEDSIDE AND SEEM SUPPORTIVE OF PT. PT REPORTS ESTABLISHED W/ PSYCH MD AND "HAS APPOINTMENT FOR TOMORROW IF I CAN JUST GET FEELING BETTER TODAY". PT ALSO CO DIFFICULTY INITIATING URINE AND IS REQUESTING UA. PT AMBULATED STEADILY TO BATHROOM TO PROVIDE UA. AWAITING ERP EVAL/ORDERS.
[2019-02-10] MEDS ORDERED: LORazepam 1MG TABLET PO ONE (17:00)
[2019-02-10 17:03] LABS: MICROSCOPIC NOT IND
[2019-02-10] MEDS ORDERED: LORazepam 1MG TABLET ONE (17:03)
--- NOTE | 2019-02-10 17:07 | NUR ---
PT MEDICATED PER EMAR FOR ANXIETY. VERBAL ORDER FOR NYSTATIN OINTMENT. YELLOW SLIP SENT TO PHARMACY
[2019-02-10 17:09] LABS: CULTURE INDICATED? NO
[2019-02-10] MEDS ORDERED: ONDANSETRON ODT 8 MG ONE (17:16)
[2019-02-10] MEDS ORDERED: NYSTATIN OINT 15GM TP PRN (17:30)
[2019-02-10] MEDS ORDERED: ONDANSETRON ODT 8 MG PO ONE (17:30)
--- NOTE | 2019-02-10 17:59 | NUR ---
DC EDUCATION PROVIDED, PT DEMONSTRATES UNDERSTANDING. PT AMBULATED STEADILY TO DC WITH RN AND FAMILY. MOTHER TO TRANSPORT PT HOME. Addendum: 02/10/19 at 1800 by LWEGENER PT REPORTS SIGNIFICANT IMPROVEMENT IN ANXIETY/NAUSEA WITH MEDICATIONS.
== END 2019-02-10 18:02 | disposition home or self-care (01) ==
LOC: ED 17:25
DX: F41.1 Generalized anxiety disorder (principal); B37.2 Candidiasis of skin and nail; R11.0 Nausea; F17.200 Nicotine dependence, unspecified, uncomplicated; F20.9 Schizophrenia, unspecified
CPT/HCPCS: 81003; 99284; Q0162

== ENCOUNTER 2019-06-04 14:00 | Emergency (ER) | payer MEDICAID ==
[~2019-06-04] VITALS: Ht 167.6 cm; Wt 82.8 kg
[~2019-06-04 14:00] MED LIST changes: +FLUO20CA23 PO; -FLUO20CA8 PO; -HYDR50TA13 PO; +HYDR50TA99 PO
[2019-06-04 14:39] LABS: BASOPHILS # (AUTO) 0.07 x10^3/uL (0-0.1); BASOPHILS % (AUTO) 1 % (0-1); EOSINOPHILS # (AUTO) 0.11 x10^3/uL (0-0.4); EOSINOPHILS % (AUTO) 1 % (1-7); LYMPHOCYTES # (AUTO) 2.93 x10^3/uL (1-3.4); LYMPHOCYTES % (AUTO) 31 % (22-44); MD NO; MEAN CORPUSCULAR HEMOGLOBIN 30.2 pg (27.5-34.5); MEAN CORPUSCULAR HGB CONC 34.6 g/dL (33.2-36.2); MEAN CORPUSCULAR VOLUME 87.4 fL (81-97); MEAN PLATELET VOLUME 10.1 fL (7.4-10.4); MONOCYTES # (AUTO) 0.66 x10^3/uL (0.2-0.8); MONOCYTES % (AUTO) 7 % (2-9); NEUTROPHILS # (AUTO) 5.72 x10^3/uL (1.8-6.8); NEUTROPHILS % (AUTO) 60 % (42-75); PLATELET COUNT 188 x10^3/uL (130-400); RED BLOOD COUNT 5.84 x10^6/uL (4.38-5.82)
[2019-06-04 15:22] LABS: ALBUMIN 3.5 g/dL (3.4-5.0); ANION GAP 6 mmol/L (5-15); CALCIUM 8.4 mg/dL (8.5-10.1); CHLORIDE 108 mmol/L (98-107); CREATININE 0.96 mg/dL (0.7-1.3)
[2019-06-04 15:26] LABS: ALKALINE PHOSPHATASE 94 U/L (45-117); BILIRUBIN,TOTAL 0.3 mg/dL (0.2-1.0); TOTAL PROTEIN 7.6 g/dL (6.4-8.2); TROPONIN I < 0.015 ng/mL (0.000-0.045)
[2019-06-04 15:33] LABS: ALANINE AMINOTRANSFERASE 63 U/L (12-78)
[2019-06-04 16:27] VITALS: BP 112/88
[2019-06-04] MEDS ORDERED: ONDANSETRON ODT 4 MG ONE (17:25)
[2019-06-04] MEDS ORDERED: KETOROLAC 30 MG/1 ML ONE (17:25)
[2019-06-04] MEDS ORDERED: ONDANSETRON ODT 8 MG PO ONE (17:30)
[2019-06-04] MEDS ORDERED: KETOROLAC 30 MG/1 ML IM ONE (17:30)
--- NOTE | 2019-06-04 17:33 | NUR ---
BREAK RN: PT MED FOR NAUSEA NOTED. PT REFUSED TORADOL STATES "IT MAKES ME ANXIOUS AND ITCHY" PROVIDER INFORMED. URINE COLLECT AND SENT TO LAB
[2019-06-04 18:05] LABS: CULTURE INDICATED? NO; MICROSCOPIC AUTO
== END 2019-06-04 19:27 | disposition home or self-care (01) ==
LOC: ED 15:00
DX: R31.29 Other microscopic hematuria (principal); F20.9 Schizophrenia, unspecified; F17.200 Nicotine dependence, unspecified, uncomplicated; Z90.89 Acquired absence of other organs; Z90.49 Acquired absence of other specified parts of digestive tract
CPT/HCPCS: 36415; 71046; 74176; 80053; 81001; 84484; 85025; 93005; 99285; Q0162